=== PATIENT | male | born 1955 | race Caucasian/White ===

== ENCOUNTER → 2016-09-22 | Outpatient (CLI) | payer MEDICARE ==
[~2016-09-22] MED LIST: ASPI-498 PO; CLOP75TA28 PO; IOHEXOL 350 MG/ML 100ML IJ ONE; LIS20T PO; METF-312 PO; ROSU10TA16 PO
[2016-09-22 09:24] VITALS: BP 181/102
[2016-09-22 09:50] VITALS: BP 180/82
== END | disposition home or self-care (01) ==
LOC: Rad HDHVI 09:13
PROVIDERS: ATTEND Internal Medicine Cardiovascular Disease
DX: I63.8 Other cerebral infarction (principal)
CPT/HCPCS: 70496; 70498; G0463; Q9967

== ENCOUNTER → 2016-09-26 | Outpatient (CLI) | payer MEDICARE ==
[~2016-09-26] MED LIST changes: -IOHEXOL 350 MG/ML 100ML IJ ONE
[2016-09-26 10:35] VITALS: BP 142/84
[2016-09-26 11:00] VITALS: BP 138/80
[2016-09-26 16:42] LABS: INR 0.96 (0.9-1.15); Partial Thromboplastin Time 26.5 sec (22.64-33.71); Prothrombin Time 9.9 sec (9.37-12.3)
[2016-09-26 16:46] LABS: Basophils # (auto) 0 uL; Basophils % (auto) 0.6 % (0.0-2.0); Eosinophils # (auto) 0.1 uL; Hematocrit 47.3 % (41.0-53.0); Hemoglobin 15.7 g/dL (13.5-17.5); Lymphocytes % (auto) 23.4 % (10.0-50.0); Mean Corpuscular Hemoglobin 29.2 pg (28.0-32.0); Mean Corpuscular Hgb Conc. 33.1 g/dL (32.0-36.0); Mean Platelet Volume 10.1 fL (7.4-10.4); Monocytes # (auto) 0.7 uL; Monocytes % (auto) 8.3 % (0.0-12.0); Neutrophils # (auto) 5.6 uL; Neutrophils % (auto) 66.7 % (37.0-80.0); Platelet Count (auto) 267 10^3/uL (140-450); Red Cell Distribution Width 12.5 % (11.6-16.0); White Blood Cell 8.4 10^3/uL (4.4-10.8)
[2016-09-26 16:56] LABS: Potassium 4.7 mmol/L (3.5-5.1)
[2016-09-26 17:04] LABS: BUN/Creatinine Ratio 19.4; Calcium 8.4 mg/dL (8.5-10.1)
== END | disposition home or self-care (01) ==
LOC: Rad HDHVI 10:03
PROVIDERS: ATTEND Internal Medicine Cardiovascular Disease
DX: I10 Essential (primary) hypertension (principal); D64.9 Anemia, unspecified; R79.1 Abnormal coagulation profile
CPT/HCPCS: 36415; 71020; 80048; 85025; 85049; 85610; 85730; G0463

== ENCOUNTER → 2016-09-28 | Day surgery (SDC) | payer MEDICARE ==
[~2016-09-28] VITALS: Ht 30.5 cm; Wt 0.5 kg
[~2016-09-28] MED LIST changes: +ACETAMINOPHEN 500 MG TAB PO ONE; +ANGIOMAX 250 MG VIAL IV ONE; +EPTIFIBATIDE INJ (2MG/ML) 10ML VIAL IV ONE; +IOHEXOL 350 MG/ML 100ML IJ ONE; +LIDOCAINE 2%HCL (LOCAL ANESTH.) INJ 20ML MDV ONE; +MIDAZOLAM HCL 1MG/1ML-2 ML VIAL ONE; +SODIUM CHL 0.9% 0 ML ONE; +fentaNYL CITRATE 100 MCG/2 ML VL ONE
== END | disposition home or self-care (01) ==
LOC: CATH 10:26
PROVIDERS: ATTEND Internal Medicine Cardiovascular Disease
DX: I25.10 Atherosclerotic heart disease of native coronary artery without angina pectoris (principal); E11.9 Type 2 diabetes mellitus without complications; Z95.1 Presence of aortocoronary bypass graft; I25.5 Ischemic cardiomyopathy; B19.10 Unspecified viral hepatitis B without hepatic coma
CPT/HCPCS: 93458; C1760; C1887; C1894; J1644; J2250; J3010; J7030; Q9967

== ENCOUNTER → 2016-10-11 | Outpatient (CLI) | payer MEDICARE ==
[~2016-10-11] MED LIST changes: -ACETAMINOPHEN 500 MG TAB PO ONE; -ANGIOMAX 250 MG VIAL IV ONE; -EPTIFIBATIDE INJ (2MG/ML) 10ML VIAL IV ONE; -IOHEXOL 350 MG/ML 100ML IJ ONE; -LIDOCAINE 2%HCL (LOCAL ANESTH.) INJ 20ML MDV ONE; -MIDAZOLAM HCL 1MG/1ML-2 ML VIAL ONE; -SODIUM CHL 0.9% 0 ML ONE; -fentaNYL CITRATE 100 MCG/2 ML VL ONE
[2016-10-11 11:32] VITALS: BP_SYST 126; BP_SYST 132; BP_DIAS 70; BP_DIAS 80
== END | disposition home or self-care (01) ==
LOC: CHF HDHVI 10:57
PROVIDERS: ATTEND Internal Medicine Cardiovascular Disease
DX: I50.23 Acute on chronic systolic (congestive) heart failure (principal); I25.738 Atherosclerosis of nonautologous biological coronary artery bypass graft(s) with other forms of angina pectoris; Z95.5 Presence of coronary angioplasty implant and graft
CPT/HCPCS: G0166

== ENCOUNTER → 2016-10-12 | Outpatient (CLI) | payer MEDICARE ==
[2016-10-12 11:41] VITALS: BP_SYST 145; BP_DIAS 82; BP_DIAS 86
== END | disposition home or self-care (01) ==
LOC: CHF HDHVI 11:10
PROVIDERS: ATTEND Internal Medicine Cardiovascular Disease
DX: I50.23 Acute on chronic systolic (congestive) heart failure (principal); I25.738 Atherosclerosis of nonautologous biological coronary artery bypass graft(s) with other forms of angina pectoris; Z95.5 Presence of coronary angioplasty implant and graft
CPT/HCPCS: G0166

== ENCOUNTER → 2016-10-13 | Outpatient (CLI) | payer MEDICARE ==
[2016-10-13 11:16] VITALS: BP_SYST 157; BP_SYST 167; BP_DIAS 80; BP_DIAS 82
== END | disposition home or self-care (01) ==
LOC: CHF HDHVI 10:29
PROVIDERS: ATTEND Internal Medicine Cardiovascular Disease
DX: I50.23 Acute on chronic systolic (congestive) heart failure (principal); I25.738 Atherosclerosis of nonautologous biological coronary artery bypass graft(s) with other forms of angina pectoris; Z95.5 Presence of coronary angioplasty implant and graft
CPT/HCPCS: G0166

== ENCOUNTER → 2016-10-17 | Outpatient (CLI) | payer MEDICARE ==
[2016-10-17 11:22] VITALS: BP_SYST 139; BP_SYST 151; BP_DIAS 82; BP_DIAS 84
== END | disposition home or self-care (01) ==
LOC: CHF HDHVI 11:03
PROVIDERS: ATTEND Internal Medicine Cardiovascular Disease
DX: I50.23 Acute on chronic systolic (congestive) heart failure (principal); I25.738 Atherosclerosis of nonautologous biological coronary artery bypass graft(s) with other forms of angina pectoris; Z95.5 Presence of coronary angioplasty implant and graft
CPT/HCPCS: G0166

== ENCOUNTER → 2016-10-18 | Outpatient (CLI) | payer MEDICARE ==
[2016-10-18 11:20] VITALS: BP_SYST 156; BP_SYST 160; BP_DIAS 82; BP_DIAS 86
== END | disposition home or self-care (01) ==
LOC: CHF HDHVI 10:40
PROVIDERS: ATTEND Internal Medicine Cardiovascular Disease
DX: I50.23 Acute on chronic systolic (congestive) heart failure (principal); I25.738 Atherosclerosis of nonautologous biological coronary artery bypass graft(s) with other forms of angina pectoris; Z95.5 Presence of coronary angioplasty implant and graft
CPT/HCPCS: G0166

== ENCOUNTER → 2016-10-19 | Outpatient (CLI) | payer MEDICARE ==
[2016-10-19 11:00] VITALS: BP_SYST 148; BP_SYST 174; BP_DIAS 85; BP_DIAS 90
== END | disposition home or self-care (01) ==
LOC: CHF HDHVI 10:57
PROVIDERS: ATTEND Internal Medicine Cardiovascular Disease
DX: I50.23 Acute on chronic systolic (congestive) heart failure (principal); I25.738 Atherosclerosis of nonautologous biological coronary artery bypass graft(s) with other forms of angina pectoris; Z95.5 Presence of coronary angioplasty implant and graft
CPT/HCPCS: G0166

== ENCOUNTER → 2016-10-20 | Outpatient (CLI) | payer MEDICARE ==
[2016-10-20 11:09] VITALS: BP_SYST 158; BP_SYST 160; BP_DIAS 82; BP_DIAS 88
== END | disposition home or self-care (01) ==
LOC: CHF HDHVI 11:03
PROVIDERS: ATTEND Internal Medicine Cardiovascular Disease
DX: I50.23 Acute on chronic systolic (congestive) heart failure (principal); I25.738 Atherosclerosis of nonautologous biological coronary artery bypass graft(s) with other forms of angina pectoris; Z95.5 Presence of coronary angioplasty implant and graft
CPT/HCPCS: G0166

== ENCOUNTER → 2016-10-24 | Outpatient (CLI) | payer MEDICARE ==
[~2016-10-24] MED LIST changes: +ALBUTEROL SULF 2.5 MG/0.5ML(0.5%) NEB SOLN NEB ONE; +ALBUTEROL SULF 2.5 MG/0.5ML(0.5%) NEB SOLN ONE
[2016-10-24 09:12] VITALS: BP_SYST 140; BP_SYST 143; BP_DIAS 78; BP_DIAS 86
[2016-10-24 10:50] VITALS: BP 160/97
[2016-10-24 11:30] VITALS: BP 152/94
== END | disposition home or self-care (01) ==
LOC: CHF HDHVI 08:58
PROVIDERS: ATTEND Internal Medicine Cardiovascular Disease
DX: I50.23 Acute on chronic systolic (congestive) heart failure (principal); I25.738 Atherosclerosis of nonautologous biological coronary artery bypass graft(s) with other forms of angina pectoris; Z95.5 Presence of coronary angioplasty implant and graft
CPT/HCPCS: 94640; G0166; G0463

== ENCOUNTER → 2016-10-25 | Outpatient (CLI) | payer MEDICARE ==
[~2016-10-25] MED LIST changes: -ALBUTEROL SULF 2.5 MG/0.5ML(0.5%) NEB SOLN NEB ONE; -ALBUTEROL SULF 2.5 MG/0.5ML(0.5%) NEB SOLN ONE
[2016-10-25 09:16] VITALS: BP_SYST 160; BP_SYST 162; BP_DIAS 82; BP_DIAS 85
== END | disposition home or self-care (01) ==
LOC: CHF HDHVI 09:04
PROVIDERS: ATTEND Internal Medicine Cardiovascular Disease
DX: I50.23 Acute on chronic systolic (congestive) heart failure (principal); I25.738 Atherosclerosis of nonautologous biological coronary artery bypass graft(s) with other forms of angina pectoris; Z95.5 Presence of coronary angioplasty implant and graft
CPT/HCPCS: G0166

== ENCOUNTER → 2016-10-26 | Outpatient (CLI) | payer MEDICARE ==
[~2016-10-26] MED LIST changes: +AML5T PO; +ATOR10TA52 PO; +GLIP-115 PO; +IBU800T PO; +ISOS20TA49 PO; +LOSA100T22 PO; +METF-316 PO
[2016-10-26 09:11] VITALS: BP_SYST 118; BP_SYST 138; BP_DIAS 60; BP_DIAS 72
== END | disposition home or self-care (01) ==
LOC: CHF HDHVI 09:18
PROVIDERS: ATTEND Internal Medicine Cardiovascular Disease
DX: I50.23 Acute on chronic systolic (congestive) heart failure (principal); I25.738 Atherosclerosis of nonautologous biological coronary artery bypass graft(s) with other forms of angina pectoris; Z95.5 Presence of coronary angioplasty implant and graft
CPT/HCPCS: G0166

== ENCOUNTER → 2016-10-27 | Outpatient (CLI) | payer MEDICARE ==
[2016-10-27 09:07] VITALS: BP_SYST 158; BP_SYST 160; BP_DIAS 82; BP_DIAS 88
[2016-10-27 10:15] VITALS: BP 148/77
[2016-10-27 10:40] VITALS: BP 135/74
== END | disposition home or self-care (01) ==
LOC: CHF HDHVI 09:12
PROVIDERS: ATTEND Internal Medicine Cardiovascular Disease
DX: I50.23 Acute on chronic systolic (congestive) heart failure (principal); I25.738 Atherosclerosis of nonautologous biological coronary artery bypass graft(s) with other forms of angina pectoris; Z95.5 Presence of coronary angioplasty implant and graft; R06.02 Shortness of breath; R05 Cough
CPT/HCPCS: G0166; G0463

== ENCOUNTER → 2016-11-03 | Outpatient (CLI) | payer MEDICARE ==
[~2016-11-03] VITALS: Ht 30.5 cm; Wt 94.3 kg
[~2016-11-03] MED LIST changes: +ALBUTEROL SULF 2.5 MG/0.5ML(0.5%) NEB SOLN NEB ONE; +ALBUTEROL SULF 2.5 MG/0.5ML(0.5%) NEB SOLN ONE; -CLOP75TA28 PO; -LIS20T PO; -METF-312 PO; -ROSU10TA16 PO
[2016-11-03 09:20] VITALS: BP_SYST 155; BP_SYST 160; BP_DIAS 88; BP_DIAS 89
[2016-11-03 10:35] VITALS: BP 135/77
[2016-11-03 11:25] VITALS: BP 152/87
== END | disposition home or self-care (01) ==
LOC: CHF HDHVI 09:04
PROVIDERS: ATTEND Internal Medicine Cardiovascular Disease
DX: I50.23 Acute on chronic systolic (congestive) heart failure (principal); I25.738 Atherosclerosis of nonautologous biological coronary artery bypass graft(s) with other forms of angina pectoris; R06.02 Shortness of breath; Z95.5 Presence of coronary angioplasty implant and graft
CPT/HCPCS: 94640; G0166; G0463

== ENCOUNTER → 2016-11-06 | Outpatient (CLI) | payer MEDICARE ==
[~2016-11-06] MED LIST changes: -ALBUTEROL SULF 2.5 MG/0.5ML(0.5%) NEB SOLN NEB ONE; -ALBUTEROL SULF 2.5 MG/0.5ML(0.5%) NEB SOLN ONE
[2016-11-06 09:00] VITALS: BP_SYST 168; BP_SYST 174; BP_DIAS 88; BP_DIAS 90
== END | disposition home or self-care (01) ==
LOC: CHF HDHVI 08:54
PROVIDERS: ATTEND Internal Medicine Cardiovascular Disease
DX: I50.23 Acute on chronic systolic (congestive) heart failure (principal); I25.738 Atherosclerosis of nonautologous biological coronary artery bypass graft(s) with other forms of angina pectoris
CPT/HCPCS: G0166

== ENCOUNTER 2016-11-07 05:34 | Emergency (ER) | payer MEDICARE ==
[~2016-11-07] VITALS: Ht 170.2 cm; Wt 94.3 kg
[2016-11-07 06:48] LABS: Basophils # (auto) 0.1 uL; Basophils % (auto) 0.7 % (0.0-2.0); Eosinophils # (auto) 0.3 uL; Eosinophils % (auto) 2.7 % (0.0-7.0); Hematocrit 43.1 % (41.0-53.0); Hemoglobin 14.6 g/dL (13.5-17.5); Lymphocytes # (auto) 2.5 uL; Mean Corpuscular Hemoglobin 29.6 pg (28.0-32.0); Mean Corpuscular Hgb Conc. 33.9 g/dL (32.0-36.0); Mean Corpuscular Volume 87.6 fL (80.0-100.0); Mean Platelet Volume 7.6 fL (7.4-10.4); Monocytes # (auto) 1.1 uL; Monocytes % (auto) 10.6 % (0.0-12.0); Neutrophils # (auto) 6.1 uL; Platelet Count (auto) 347 10^3/uL (140-450); Red Cell Distribution Width 12.5 % (11.6-16.0)
[2016-11-07 06:58] LABS: Albumin 3.8 g/dL (3.4-5.0); Anion Gap 8 (5-15); Aspartate Aminotransferase 13 U/L (15-37); BUN/Creatinine Ratio 20.3; Blood Urea Nitrogen 26 mg/dL (7-18); Calcium 8.8 mg/dL (8.5-10.1); Carbon Dioxide 27 mmol/L (21-32); Chloride 99 mmol/L (98-107); GFR African American 73 mL/min; GFR Non-African American 60 mL/min; Glucose 176 mg/dL (74-106); INR 0.97 (0.9-1.15); Magnesium 2.3 mg/dL (1.6-2.6); Partial Thromboplastin Time 26.2 sec (22.64-33.71); Sodium 134 mmol/L (136-145)
[2016-11-07 07:03] LABS: Alkaline Phosphatase 123 U/L (45-117); Bilirubin, Total 0.2 mg/dL (0.2-1.0); Total Protein 7.5 g/dL (6.4-8.2)
[2016-11-07 07:43] VITALS: BP 155/103
[2016-11-07 09:40] LABS: B-Type Natriuretic Peptide 76.86 pg/mL (0-100)
[2016-11-07 09:42] LABS: Temperature: 22.2 C (20.0-25.0)
== END 2016-11-07 09:10 | disposition home or self-care (01) ==
LOC: ER 05:38
DX: J40 Bronchitis, not specified as acute or chronic (principal); J32.8 Other chronic sinusitis; E11.65 Type 2 diabetes mellitus with hyperglycemia; R42 Dizziness and giddiness; I50.9 Heart failure, unspecified; I11.0 Hypertensive heart disease with heart failure; E78.5 Hyperlipidemia, unspecified; I25.2 Old myocardial infarction; Z86.73 Personal history of transient ischemic attack (TIA), and cerebral infarction without residual deficits; I25.810 Atherosclerosis of coronary artery bypass graft(s) without angina pectoris
CPT/HCPCS: 36415; 70450; 71010; 80053; 83735; 83880; 84484; 85025; 85379; 85610; 85730; 87040; 93005; 94761

== ENCOUNTER → 2016-11-08 | Outpatient (CLI) | payer MEDICARE ==
[2016-11-08 09:22] VITALS: BP_SYST 160; BP_SYST 162; BP_DIAS 88; BP_DIAS 92
== END | disposition home or self-care (01) ==
LOC: CHF HDHVI 09:22
PROVIDERS: ATTEND Internal Medicine Cardiovascular Disease
DX: I50.23 Acute on chronic systolic (congestive) heart failure (principal); I25.738 Atherosclerosis of nonautologous biological coronary artery bypass graft(s) with other forms of angina pectoris; Z95.5 Presence of coronary angioplasty implant and graft
CPT/HCPCS: G0166

== ENCOUNTER 2016-11-13 13:00 | Emergency (ER) | payer MEDICARE ==
[~2016-11-13] VITALS: Ht 170.2 cm; Wt 94.8 kg
[2016-11-13 13:43] VITALS: BP 119/75
[2016-11-13 14:34] LABS: Basophils # (auto) 0.1 uL; Basophils % (auto) 0.6 % (0.0-2.0); Eosinophils # (auto) 0.1 uL; Eosinophils % (auto) 1.3 % (0.0-7.0); Hematocrit 42.2 % (41.0-53.0); Hemoglobin 14.5 g/dL (13.5-17.5); Lymphocytes # (auto) 2.2 uL; Mean Corpuscular Hemoglobin 29.7 pg (28.0-32.0); Mean Corpuscular Hgb Conc. 34.4 g/dL (32.0-36.0); Mean Corpuscular Volume 86.4 fL (80.0-100.0); Monocytes % (auto) 10.6 % (0.0-12.0); Neutrophils # (auto) 5.9 uL; Neutrophils % (auto) 63.5 % (37.0-80.0); Platelet Count (auto) 359 10^3/uL (140-450); Red Cell Distribution Width 12.9 % (11.6-16.0); White Blood Cell 9.3 10^3/uL (4.4-10.8)
[2016-11-13 15:06] LABS: Albumin 4.1 g/dL (3.4-5.0); Alkaline Phosphatase 91 U/L (45-117); Anion Gap 12 (5-15); Aspartate Aminotransferase 25 U/L (15-37); BUN/Creatinine Ratio 18.8; Bilirubin, Total 0.3 mg/dL (0.2-1.0); Blood Urea Nitrogen 33 mg/dL (7-18); Calcium 9.4 mg/dL (8.5-10.1); Carbon Dioxide 24 mmol/L (21-32); Chloride 103 mmol/L (98-107); GFR African American 51 mL/min; GFR Non-African American 42 mL/min; Glucose 117 mg/dL (74-106); Magnesium 2.4 mg/dL (1.6-2.6); Potassium 4.3 mmol/L (3.5-5.1); Sodium 139 mmol/L (136-145); Total Protein 7.7 g/dL (6.4-8.2)
== END 2016-11-13 20:30 | disposition left against medical advice (07) ==
LOC: ER 13:00
DX: R06.02 Shortness of breath (principal); R42 Dizziness and giddiness; Z53.21 Procedure and treatment not carried out due to patient leaving prior to being seen by health care provider
CPT/HCPCS: 36415; 71020; 80053; 83735; 84484; 85025; 93005

== ENCOUNTER → 2016-11-21 | Outpatient (CLI) | payer MEDICARE ==
[2016-11-21 11:06] VITALS: BP_SYST 145; BP_SYST 160; BP_DIAS 77; BP_DIAS 88
== END | disposition home or self-care (01) ==
LOC: CHF HDHVI 11:15
PROVIDERS: ATTEND Internal Medicine Cardiovascular Disease
DX: I50.23 Acute on chronic systolic (congestive) heart failure (principal); I25.738 Atherosclerosis of nonautologous biological coronary artery bypass graft(s) with other forms of angina pectoris; Z95.5 Presence of coronary angioplasty implant and graft
CPT/HCPCS: G0166

== ENCOUNTER → 2016-11-22 | Outpatient (CLI) | payer MEDICARE ==
[2016-11-22 11:28] VITALS: BP_SYST 160; BP_DIAS 82; BP_DIAS 90
== END | disposition home or self-care (01) ==
LOC: CHF HDHVI 12:58
PROVIDERS: ATTEND Internal Medicine Cardiovascular Disease
DX: I50.23 Acute on chronic systolic (congestive) heart failure (principal); I25.738 Atherosclerosis of nonautologous biological coronary artery bypass graft(s) with other forms of angina pectoris; Z95.5 Presence of coronary angioplasty implant and graft
CPT/HCPCS: G0166

== ENCOUNTER → 2016-11-23 | Outpatient (CLI) | payer MEDICARE ==
[2016-11-23 10:44] VITALS: BP_SYST 147; BP_SYST 151; BP_DIAS 79; BP_DIAS 85
== END | disposition home or self-care (01) ==
LOC: CHF HDHVI 11:04
PROVIDERS: ATTEND Internal Medicine Cardiovascular Disease
DX: I50.23 Acute on chronic systolic (congestive) heart failure (principal); I25.738 Atherosclerosis of nonautologous biological coronary artery bypass graft(s) with other forms of angina pectoris; Z95.5 Presence of coronary angioplasty implant and graft
CPT/HCPCS: G0166

== ENCOUNTER → 2016-11-24 | Outpatient (CLI) | payer MEDICARE ==
[2016-11-24 10:15] VITALS: BP_SYST 142; BP_SYST 146; BP_DIAS 74; BP_DIAS 89
== END | disposition home or self-care (01) ==
LOC: CHF HDHVI 10:13
PROVIDERS: ATTEND Internal Medicine Cardiovascular Disease
DX: I50.23 Acute on chronic systolic (congestive) heart failure (principal); I25.738 Atherosclerosis of nonautologous biological coronary artery bypass graft(s) with other forms of angina pectoris; Z95.5 Presence of coronary angioplasty implant and graft
CPT/HCPCS: G0166

== ENCOUNTER → 2016-11-28 | Outpatient (CLI) | payer MEDICARE ==
[2016-11-28 10:23] VITALS: BP_SYST 145; BP_SYST 158; BP_DIAS 82; BP_DIAS 87
== END | disposition home or self-care (01) ==
LOC: CHF HDHVI 09:59
PROVIDERS: ATTEND Internal Medicine Cardiovascular Disease
DX: I50.23 Acute on chronic systolic (congestive) heart failure (principal); I25.738 Atherosclerosis of nonautologous biological coronary artery bypass graft(s) with other forms of angina pectoris; Z95.5 Presence of coronary angioplasty implant and graft
CPT/HCPCS: G0166

== ENCOUNTER → 2016-11-29 | Outpatient (CLI) | payer MEDICARE ==
[2016-11-29 09:27] VITALS: BP_SYST 137; BP_SYST 160; BP_DIAS 78; BP_DIAS 80
== END | disposition home or self-care (01) ==
LOC: CHF HDHVI 09:19
PROVIDERS: ATTEND Internal Medicine Cardiovascular Disease
DX: I50.23 Acute on chronic systolic (congestive) heart failure (principal); I25.738 Atherosclerosis of nonautologous biological coronary artery bypass graft(s) with other forms of angina pectoris; Z95.5 Presence of coronary angioplasty implant and graft
CPT/HCPCS: G0166

== ENCOUNTER → 2016-11-30 | Outpatient (CLI) | payer MEDICARE ==
[2016-11-30 09:22] VITALS: BP_SYST 134; BP_SYST 146; BP_DIAS 80; BP_DIAS 86
== END | disposition home or self-care (01) ==
LOC: CHF HDHVI 09:05
PROVIDERS: ATTEND Internal Medicine Cardiovascular Disease
DX: I50.23 Acute on chronic systolic (congestive) heart failure (principal); I25.738 Atherosclerosis of nonautologous biological coronary artery bypass graft(s) with other forms of angina pectoris; I10 Essential (primary) hypertension; D64.9 Anemia, unspecified; Z95.5 Presence of coronary angioplasty implant and graft
CPT/HCPCS: G0166

== ENCOUNTER → 2016-12-01 | Outpatient (CLI) | payer MEDICARE ==
[2016-12-01 10:08] VITALS: BP_SYST 162; BP_SYST 164; BP_DIAS 80
== END | disposition home or self-care (01) ==
LOC: CHF HDHVI 10:08
PROVIDERS: ATTEND Internal Medicine Cardiovascular Disease
DX: I50.23 Acute on chronic systolic (congestive) heart failure (principal); I25.738 Atherosclerosis of nonautologous biological coronary artery bypass graft(s) with other forms of angina pectoris; Z95.5 Presence of coronary angioplasty implant and graft
CPT/HCPCS: G0166

== ENCOUNTER → 2017-01-03 | Outpatient (CLI) | payer MEDICARE | END | disposition home or self-care (01) | LOC: Rad HDHVI 08:08 | PROVIDERS: ATTEND Internal Medicine Cardiovascular Disease | DX: R06.02 Shortness of breath (principal); R42 Dizziness and giddiness | CPT/HCPCS: 93306 ==

== ENCOUNTER 2017-01-05 01:58 | Emergency (ER) | payer MEDICARE ==
[~2017-01-05] VITALS: Ht 170.2 cm; Wt 102.5 kg
[2017-01-05 02:17] VITALS: BP 167/98
[2017-01-05 03:04] LABS: Basophils # (auto) 0.1 uL; Basophils % (auto) 0.6 % (0.0-2.0); Eosinophils # (auto) 0.2 uL; Eosinophils % (auto) 1.7 % (0.0-7.0); Hematocrit 42.3 % (41.0-53.0); Hemoglobin 14.3 g/dL (13.5-17.5); Lymphocytes # (auto) 2.5 uL; Lymphocytes % (auto) 26.1 % (10.0-50.0); Mean Corpuscular Hemoglobin 29.7 pg (28.0-32.0); Mean Corpuscular Hgb Conc. 33.9 g/dL (32.0-36.0); Mean Corpuscular Volume 87.7 fL (80.0-100.0); Mean Platelet Volume 7.9 fL (7.4-10.4); Monocytes % (auto) 10.7 % (0.0-12.0); Neutrophils # (auto) 5.9 uL; Neutrophils % (auto) 60.9 % (37.0-80.0); Platelet Count (auto) 317 10^3/uL (140-450); Red Cell Distribution Width 13.4 % (11.6-16.0); White Blood Cell 9.6 10^3/uL (4.4-10.8)
[2017-01-05 03:11] LABS: Albumin 4.1 g/dL (3.4-5.0); Anion Gap 11 (5-15); Aspartate Aminotransferase 19 U/L (15-37); BUN/Creatinine Ratio 17.8; Blood Urea Nitrogen 23 mg/dL (7-18); Calcium 8.7 mg/dL (8.5-10.1); Carbon Dioxide 24 mmol/L (21-32); Chloride 99 mmol/L (98-107); GFR African American 72 mL/min; GFR Non-African American 60 mL/min; Glucose 247 mg/dL (74-106); Sodium 134 mmol/L (136-145)
[2017-01-05 03:16] LABS: Alkaline Phosphatase 163 U/L (45-117); Bilirubin, Total 0.4 mg/dL (0.2-1.0); Total Protein 7.7 g/dL (6.4-8.2)
== END 2017-01-05 04:30 | disposition left against medical advice (07) ==
LOC: ER 01:58
CPT/HCPCS: 36415; 80053; 84484; 85025; 93005

== ENCOUNTER 2017-02-17 11:22 | Inpatient (IN) | payer MEDICARE ==
[~2017-02-17] VITALS: Ht 170.2 cm; Wt 103.3 kg
[~2017-02-17 11:22] MED LIST changes: -AML5T PO; +CARV3.1240 PO; +CLOP75TA28 PO; +FURO20TA3 PO; +GLIP-116 PO; -IBU800T PO; +IBUP800T24 PO; -ISOS20TA49 PO; -METF-316 PO; +METF-372 PO; +SPIR25TA88 PO
[2017-02-17 12:12] LABS: Basophils # (auto) 0 uL; Basophils % (auto) 0.6 % (0.0-2.0); Eosinophils # (auto) 0.1 uL; Eosinophils % (auto) 1.1 % (0.0-7.0); Hematocrit 40.1 % (41.0-53.0); Hemoglobin 13.9 g/dL (13.5-17.5); Lymphocytes # (auto) 1.7 uL; Lymphocytes % (auto) 20.6 % (10.0-50.0); Mean Corpuscular Hemoglobin 30.2 pg (28.0-32.0); Mean Corpuscular Hgb Conc. 34.7 g/dL (32.0-36.0); Mean Corpuscular Volume 87.2 fL (80.0-100.0); Mean Platelet Volume 7.5 fL (7.4-10.4); Monocytes # (auto) 0.8 uL; Monocytes % (auto) 10.3 % (0.0-12.0); Neutrophils # (auto) 5.5 uL; Neutrophils % (auto) 67.4 % (37.0-80.0); Platelet Count (auto) 290 10^3/uL (140-450); Red Cell Distribution Width 13.1 % (11.6-16.0); White Blood Cell 8.2 10^3/uL (4.4-10.8)
[2017-02-17 12:44] LABS: Albumin 4.1 g/dL (3.4-5.0); Anion Gap 11 (5-15); Aspartate Aminotransferase 14 U/L (15-37); BUN/Creatinine Ratio 15.2; Blood Urea Nitrogen 24 mg/dL (7-18); Calcium 9.1 mg/dL (8.5-10.1); Carbon Dioxide 29 mmol/L (21-32); Chloride 95 mmol/L (98-107); GFR African American 57 mL/min; GFR Non-African American 47 mL/min; Glucose 291 mg/dL (74-106); Potassium 4.7 mmol/L (3.5-5.1); Sodium 135 mmol/L (136-145)
[2017-02-17 12:49] LABS: Alkaline Phosphatase 129 U/L (45-117); Bilirubin, Total 0.4 mg/dL (0.2-1.0); Total Protein 8.1 g/dL (6.4-8.2)
[2017-02-17 13:37] LABS: INR 0.94 (0.9-1.15); Partial Thromboplastin Time 25.6 sec (22.64-33.71); Prothrombin Time 10.2 sec (9.37-12.3)
[2017-02-17 17:44] LABS: B-Type Natriuretic Peptide 51.37 pg/mL (0-100)
[2017-02-17 17:46] LABS: Temperature: 23.5 C (20.0-25.0)
[2017-02-17] MEDS ORDERED: ASPirin-EC 81 mg tab PO ONE (18:15)
[2017-02-17] MEDS ORDERED: cefTRIAXone 1GM/50ML D5W 50 ML IV ONE (18:15)
[2017-02-17] MEDS ORDERED: SODIUM CHLORIDE 0.9% 1,000 ML IV SCH (18:27)
[2017-02-17] MEDS ORDERED: NITROGLYCERIN 0.4 MG SL TAB SL PRN (18:30)
[2017-02-17] MEDS ORDERED: MORPHINE SULF INJ 2 MG/ML SYRINGE 1ML IV PRN (18:30)
[2017-02-17] MEDS ORDERED: ALBUTEROL SULF 2.5 MG/0.5ML(0.5%) NEB SOLN NEB PRN (18:30)
[2017-02-17] MEDS ORDERED: LACTULOSE 20Gm/30ML SOLN PO PRN (18:30)
[2017-02-17] MEDS ORDERED: HYDROcodone-ACET 5/325MG TAB PO PRN (18:30)
[2017-02-17] MEDS ORDERED: LORazepam 0.5 MG TAB PO PRN (18:30)
[2017-02-17] MEDS ORDERED: DEXTROSE (50%) 50ML SYRG IV PRN (18:30)
[2017-02-17] MEDS ORDERED: PROMETHAZINE HCL 25 MG/ML 1ML IV PRN (18:30)
[2017-02-17] MEDS ORDERED: ACETAMINOPHEN 500 MG TAB PO PRN (18:30)
[2017-02-17] MEDS: ACCU-CHEK COMFORT CURVE STRIP VI SCH ×2 (19:53→23:53)
[2017-02-17] MEDS: InsuLIN REG 1unit/0.01ml Soln (100units/ml) SC SCH ×2 (19:53→23:54)
[2017-02-17 20:30] VITALS: BP 136/79
[2017-02-17 21:00] VITALS: BP 136/79
[2017-02-17] MEDS ORDERED: CLOPIDOGREL BISULFATE 75 MG TAB PO ONE (21:00)
[2017-02-17] MEDS ORDERED: NITROGLYCERIN 0.2MG/HR TOPICAL PATCH TD ONE (21:00)
[2017-02-17] MEDS ORDERED: ENOXAPARIN SOD 40 MG/0.4 ML SYRINGE SC ONE (21:00)
[2017-02-17] MEDS ORDERED: ENALAPRIL MALEATE 10 MG TAB PO ONE (21:00)
[2017-02-17] MEDS ORDERED: PANTOPRAZOLE 40 MG TAB PO ONE (21:00)
[2017-02-17 21:30] VITALS: BP 136/79
[2017-02-17] MEDS: CARVEDILOL 3.125 MG TAB PO SCH (21:39)
[2017-02-17] MEDS: glipiZIDE 5 MG TAB PO SCH (21:44)
[2017-02-17] MEDS: ATORVASTATIN 20 MG TAB PO SCH (21:45)
[2017-02-17] MEDS: MORPHINE SULF INJ 2 MG/ML SYRINGE 1ML IV PRN (22:59)
[2017-02-18] MEDS: ALBUTEROL SULF 2.5 MG/0.5ML(0.5%) NEB SOLN NEB SCH ×4 (00:20→19:58)
[2017-02-18] MEDS: IPRATROPIUM BROM 0.5 MG/2.5ML INH SOL NEB SCH ×4 (00:20→19:58)
[2017-02-18] MEDS ORDERED: GLIP-116 PO (01:40)
[2017-02-18] MEDS: TEMAZEPAM 15 MG CAP PO PRN ×2 (02:23→21:37)
[2017-02-18] MEDS: ACCU-CHEK COMFORT CURVE STRIP VI SCH ×5 (04:00→20:00)
[2017-02-18 04:30] VITALS: BP 133/66
[2017-02-18] MEDS: InsuLIN REG 1unit/0.01ml Soln (100units/ml) SC SCH ×5 (05:08→21:14)
[2017-02-18 07:01] LABS: Albumin 3.5 g/dL (3.4-5.0); Alkaline Phosphatase 75 U/L (45-117); Anion Gap 12 (5-15); Aspartate Aminotransferase 46 U/L (15-37); BUN/Creatinine Ratio 23.1; Bilirubin, Total 0.5 mg/dL (0.2-1.0); Blood Urea Nitrogen 30 mg/dL (7-18); Calcium 8.6 mg/dL (8.5-10.1); Carbon Dioxide 24 mmol/L (21-32); Chloride 100 mmol/L (98-107); Cholesterol 112 mg/dL (< 200); GFR African American 72 mL/min; GFR Non-African American 59 mL/min; Glucose 124 mg/dL (74-106); HDL Cholesterol 30 mg/dL (40-59); LDL Cholesterol 57 mg/dL (< 100); Sodium 136 mmol/L (136-145); Total Protein 6.7 g/dL (6.4-8.2); Triglycerides 355 mg/dL (< 150)
[2017-02-18 08:00] VITALS: BP 142/82
[2017-02-18] MEDS: ASPirin 81 mg TAB PO SCH (09:26)
[2017-02-18] MEDS: PANTOPRAZOLE 40 MG TAB PO SCH (09:26)
[2017-02-18] MEDS: CLOPIDOGREL BISULFATE 75 MG TAB PO SCH (09:26)
[2017-02-18] MEDS: glipiZIDE 5 MG TAB PO SCH ×2 (09:27→21:37)
[2017-02-18] MEDS: ENALAPRIL MALEATE 10 MG TAB PO SCH (09:27)
[2017-02-18] MEDS: ENOXAPARIN SOD 40 MG/0.4 ML SYRINGE SC SCH (09:28)
[2017-02-18] MEDS: CARVEDILOL 3.125 MG TAB PO SCH ×2 (09:29→21:39)
[2017-02-18] MEDS: cefTRIAXone 1GM/50ML D5W 50 ML IV SCH (09:29)
[2017-02-18] MEDS: NITROGLYCERIN 0.2MG/HR TOPICAL PATCH TD SCH (10:00)
[2017-02-18] MEDS ORDERED: LOSARTAN POTASSIUM 50 MG TAB PO SCH (10:00)
[2017-02-18 10:57] LABS: Urine Bilirubin Negative (Negative); Urine Blood Negative /uL (Negative); Urine Color Yellow (Yellow); Urine Glucose 2+ mg/dL (Normal); Urine Ketone Negative (Negative); Urine Nitrite Negative (Negative); Urine RBC <1 /hpf (0 - 3); Urine Urobilinogen Normal (Negative); Urine pH 5.5 (5.0-8.0)
[2017-02-18 12:24] LABS: B-Type Natriuretic Peptide 43.23 pg/mL (0-100)
[2017-02-18] MEDS: AZITHROMYCIN 500MG/D5W 250ML 250 ML IV SCH (12:28)
[2017-02-18 12:30] LABS: Temperature: 23.5 C (20.0-25.0)
[2017-02-18 13:39] VITALS: BP 105/57
[2017-02-18 17:07] VITALS: BP_SYST 121; BP_SYST 148; BP_DIAS 76; BP_DIAS 87
[2017-02-18 20:00] VITALS: BP 136/94
[2017-02-18 21:12] VITALS: BP 134/77
[2017-02-18] MEDS: ATORVASTATIN 20 MG TAB PO SCH (21:37)
[2017-02-19] VITALS (7 sets, daily range): BP systolic 125–138; BP diastolic 69–89
[2017-02-19] MEDS: ALBUTEROL SULF 2.5 MG/0.5ML(0.5%) NEB SOLN NEB SCH ×3 (00:40→13:18)
[2017-02-19] MEDS: IPRATROPIUM BROM 0.5 MG/2.5ML INH SOL NEB SCH ×3 (00:41→13:18)
[2017-02-19] MEDS: InsuLIN REG 1unit/0.01ml Soln (100units/ml) SC SCH ×4 (01:00→12:17)
[2017-02-19] MEDS: ACCU-CHEK COMFORT CURVE STRIP VI SCH ×4 (04:15→12:16)
[2017-02-19 06:29] LABS: Basophils # (auto) 0 uL; Basophils % (auto) 0.6 % (0.0-2.0); Eosinophils # (auto) 0.2 uL; Eosinophils % (auto) 2.2 % (0.0-7.0); Hematocrit 37.2 % (41.0-53.0); Hemoglobin 12.9 g/dL (13.5-17.5); Lymphocytes # (auto) 1.8 uL; Lymphocytes % (auto) 24.5 % (10.0-50.0); Mean Corpuscular Hemoglobin 30.5 pg (28.0-32.0); Mean Corpuscular Hgb Conc. 34.6 g/dL (32.0-36.0); Mean Platelet Volume 7.9 fL (7.4-10.4); Monocytes # (auto) 0.7 uL; Monocytes % (auto) 10.4 % (0.0-12.0); Neutrophils # (auto) 4.5 uL; Neutrophils % (auto) 62.3 % (37.0-80.0); Platelet Count (auto) 267 10^3/uL (140-450); Red Cell Distribution Width 12.6 % (11.6-16.0); White Blood Cell 7.2 10^3/uL (4.4-10.8)
[2017-02-19 06:42] LABS: INR 0.96 (0.9-1.15); Prothrombin Time 10.5 sec (9.37-12.3)
[2017-02-19 07:23] LABS: Albumin 3.6 g/dL (3.4-5.0); BUN/Creatinine Ratio 19.7; Bilirubin, Total 0.3 mg/dL (0.2-1.0); Calcium 8.5 mg/dL (8.5-10.1); Magnesium 2.4 mg/dL (1.6-2.6); Potassium 3.7 mmol/L (3.5-5.1); Total Protein 6.5 g/dL (6.4-8.2)
[2017-02-19] MEDS: cefTRIAXone 1GM/50ML D5W 50 ML IV SCH (09:01)
[2017-02-19] MEDS: PANTOPRAZOLE 40 MG TAB PO SCH (09:47)
[2017-02-19] MEDS: ASPirin 81 mg TAB PO SCH (09:47)
[2017-02-19] MEDS: AZITHROMYCIN 500MG/D5W 250ML 250 ML IV SCH (09:47)
[2017-02-19] MEDS: CLOPIDOGREL BISULFATE 75 MG TAB PO SCH (09:48)
[2017-02-19] MEDS: glipiZIDE 5 MG TAB PO SCH (09:48)
[2017-02-19] MEDS: CARVEDILOL 3.125 MG TAB PO SCH (09:48)
[2017-02-19] MEDS: ENALAPRIL MALEATE 10 MG TAB PO SCH (09:49)
[2017-02-19] MEDS ORDERED: FUROSEMIDE 20 MG/2 ML VIAL IV SCH (10:00)
[2017-02-19] MEDS: NITROGLYCERIN 0.2MG/HR TOPICAL PATCH TD SCH (10:00)
[2017-02-19] MEDS: ENOXAPARIN SOD 40 MG/0.4 ML SYRINGE SC SCH (10:04)
[2017-02-19] MEDS: MORPHINE SULF INJ 2 MG/ML SYRINGE 1ML IV PRN (10:04)
== END 2017-02-19 15:53 | disposition home or self-care (01) | DRG 291 ==
LOC: ER 11:23 → TELE 11:24 → TELE-WESTW 19:48
PROVIDERS: ADMIT Internal Medicine; ATTEND Internal Medicine
DX: I50.21 Acute systolic (congestive) heart failure (principal); J18.9 Pneumonia, unspecified organism; N17.9 Acute kidney failure, unspecified; E87.1 Hypo-osmolality and hyponatremia; I13.0 Hypertensive heart and chronic kidney disease with heart failure and stage 1 through stage 4 chronic kidney disease, or unspecified chronic kidney disease; I25.110 Atherosclerotic heart disease of native coronary artery with unstable angina pectoris; I25.5 Ischemic cardiomyopathy; E11.22 Type 2 diabetes mellitus with diabetic chronic kidney disease; E78.5 Hyperlipidemia, unspecified; E66.01 Morbid (severe) obesity due to excess calories; E11.69 Type 2 diabetes mellitus with other specified complication; E11.65 Type 2 diabetes mellitus with hyperglycemia; E11.40 Type 2 diabetes mellitus with diabetic neuropathy, unspecified; E66.9 Obesity, unspecified; G47.30 Sleep apnea, unspecified; N18.3 Chronic kidney disease, stage 3 (moderate); Z82.3 Family history of stroke; Z86.73 Personal history of transient ischemic attack (TIA), and cerebral infarction without residual deficits; I25.2 Old myocardial infarction; Z95.5 Presence of coronary angioplasty implant and graft; Z82.49 Family history of ischemic heart disease and other diseases of the circulatory system; Z83.3 Family history of diabetes mellitus; Z95.810 Presence of automatic (implantable) cardiac defibrillator; Z79.899 Other long term (current) drug therapy; Z68.35 Body mass index [BMI] 35.0-35.9, adult
CPT/HCPCS: 36415; 71020; 80053; 80061; 80307; 81001; 82550; 82962; 83036; 83605; 83735; 83880; 84484; 85025; 85379; 85610; 85652; 85730; 86141; 87040; 87081; 93005; 94640; 94761; 96374; J0696; J1815

== ENCOUNTER → 2017-02-22 | Day surgery (SDC) | payer MEDICARE ==
[~2017-02-22] VITALS: Ht 30.5 cm; Wt 0.0 kg
[~2017-02-22] MED LIST changes: +ANGIOMAX 250 MG VIAL IV ONE; +CARVEDILOL 3.125 MG TAB ONE; +CARVEDILOL 3.125 MG TAB PO ONE; +DOPamine 1600MCG/ML 0 ML IV ONE; +ENALAPRIL MALEATE 10 MG TAB ONE; +ENALAPRIL MALEATE 10 MG TAB PO ONE; -GLIP-115 PO; +GLYCOPYRROLATE 0.2 MG/ML 1ML VIAL ONE; +IOHEXOL 350 MG/ML 100ML IJ ONE; +LIDOCAINE 2%HCL (LOCAL ANESTH.) INJ 20ML MDV ONE; +PHENYLEPHRINE HCL 10 MG/ML VL ONE; +SODIUM CHL 0.9% 0 ML ONE
== END | disposition home or self-care (01) ==
LOC: CATH 08:00
PROVIDERS: ATTEND Internal Medicine Cardiovascular Disease
DX: I25.10 Atherosclerotic heart disease of native coronary artery without angina pectoris (principal); Z95.1 Presence of aortocoronary bypass graft; I25.5 Ischemic cardiomyopathy; E66.01 Morbid (severe) obesity due to excess calories; E78.5 Hyperlipidemia, unspecified; I21.3 ST elevation (STEMI) myocardial infarction of unspecified site; E11.9 Type 2 diabetes mellitus without complications; M19.90 Unspecified osteoarthritis, unspecified site; I50.9 Heart failure, unspecified; J44.9 Chronic obstructive pulmonary disease, unspecified; J40 Bronchitis, not specified as acute or chronic
CPT/HCPCS: 36224; 82962; C1760; C1894; J1644; J2370; J7030; Q9967; 99152

== ENCOUNTER → 2017-03-14 | Outpatient (CLI) | payer MEDICARE ==
[~2017-03-14] MED LIST changes: -ANGIOMAX 250 MG VIAL IV ONE; -CARVEDILOL 3.125 MG TAB ONE; -CARVEDILOL 3.125 MG TAB PO ONE; -DOPamine 1600MCG/ML 0 ML IV ONE; -ENALAPRIL MALEATE 10 MG TAB ONE; -ENALAPRIL MALEATE 10 MG TAB PO ONE; -GLYCOPYRROLATE 0.2 MG/ML 1ML VIAL ONE; -IOHEXOL 350 MG/ML 100ML IJ ONE; -LIDOCAINE 2%HCL (LOCAL ANESTH.) INJ 20ML MDV ONE; -PHENYLEPHRINE HCL 10 MG/ML VL ONE; -SODIUM CHL 0.9% 0 ML ONE
== END | disposition home or self-care (01) ==
LOC: Rad HDHVI 15:03
PROVIDERS: ATTEND Internal Medicine Cardiovascular Disease
DX: E78.5 Hyperlipidemia, unspecified (principal)
CPT/HCPCS: 93306

== ENCOUNTER → 2017-03-28 | Outpatient (CLI) | payer MEDICARE ==
[~2017-03-28] VITALS: Ht 170.2 cm; Wt 101.2 kg
[2017-03-28 13:11] LABS: Cholesterol 134 mg/dL (< 200); HDL Cholesterol 37 mg/dL (40-59); LDL Cholesterol 64 mg/dL (< 100); Triglycerides 334 mg/dL (< 150)
== END | disposition home or self-care (01) ==
LOC: Rad HDHVI 09:15
PROVIDERS: ATTEND Internal Medicine Cardiovascular Disease
DX: I10 Essential (primary) hypertension (principal); I25.2 Old myocardial infarction; E78.00 Pure hypercholesterolemia, unspecified; E03.9 Hypothyroidism, unspecified; R53.81 Other malaise; Z95.0 Presence of cardiac pacemaker; Z95.1 Presence of aortocoronary bypass graft
CPT/HCPCS: 36415; 78452; 80061; 84403; 84443; 93017; 96374; A9500

== ENCOUNTER 2017-09-26 05:17 | Emergency (ER) | payer OTHER ==
[~2017-09-26] VITALS: Ht 170.2 cm; Wt 90.7 kg
[~2017-09-26 05:17] MED LIST changes: +PRE5T PO
[2017-09-26 06:56] LABS: Basophils # (auto) 0.1 uL; Eosinophils # (auto) 0.1 uL; Hematocrit 40.6 % (41.0-53.0); Lymphocytes # (auto) 1.9 uL; Lymphocytes % (auto) 23.8 % (10.0-50.0); Mean Corpuscular Hemoglobin 28.9 pg (28.0-32.0); Mean Corpuscular Hgb Conc. 34.4 g/dL (32.0-36.0); Mean Corpuscular Volume 84.2 fL (80.0-100.0); Monocytes # (auto) 0.9 uL; Monocytes % (auto) 11.1 % (0.0-12.0); Neutrophils % (auto) 63.1 % (37.0-80.0); Nucleated Red Blood Cells % 0.1 %; Platelet Count (auto) 230 10^3/uL (140-450); Red Blood Cells 4.82 10^6/uL (4.5-5.90); Red Cell Distribution Width 13.4 % (11.8-14.3); White Blood Cell 7.9 10^3/uL (4.4-10.8)
[2017-09-26 07:16] LABS: INR 0.93 (0.9-1.15); Partial Thromboplastin Time 26.6 sec (22.64-33.71); Prothrombin Time 10.1 sec (9.37-12.3)
[2017-09-26] MEDS ORDERED: SODIUM CHLORIDE 0.9% 1,000 ML IV ONE (07:22)
[2017-09-26 07:27] LABS: Albumin 3.5 g/dL (3.4-5.0); BUN/Creatinine Ratio 17.9; Bilirubin, Total 0.4 mg/dL (0.2-1.0); Magnesium 2.2 mg/dL (1.6-2.6); Potassium 3.7 mmol/L (3.5-5.1); Total Protein 6.4 g/dL (6.4-8.2)
[2017-09-26 07:31] VITALS: BP 147/88
[2017-09-26 08:47] LABS: Urine Bacteria NONE SEEN /hpf (None Seen); Urine Blood Negative /uL (Negative); Urine WBC <1 /hpf (0 - 3)
== END 2017-09-26 09:47 | disposition home or self-care (01) ==
LOC: EDBD 05:17 → EDUNIT# 05:17 → ER 05:21
DX: I25.810 Atherosclerosis of coronary artery bypass graft(s) without angina pectoris (principal); J44.9 Chronic obstructive pulmonary disease, unspecified; R81 Glycosuria; R80.9 Proteinuria, unspecified; I11.0 Hypertensive heart disease with heart failure; I50.9 Heart failure, unspecified; E78.5 Hyperlipidemia, unspecified; E11.65 Type 2 diabetes mellitus with hyperglycemia; Z86.73 Personal history of transient ischemic attack (TIA), and cerebral infarction without residual deficits; Z95.1 Presence of aortocoronary bypass graft; Z95.0 Presence of cardiac pacemaker; Z79.82 Long term (current) use of aspirin; Z95.810 Presence of automatic (implantable) cardiac defibrillator
CPT/HCPCS: 36415; 71046; 80053; 81001; 83735; 83880; 84443; 84484; 85025; 85610; 85730; 93005; 94761; 96360; 96361

== ENCOUNTER 2018-02-27 05:37 | Inpatient (IN) | payer MEDICARE, OTHER ==
[~2018-02-27] VITALS: Ht 170.2 cm; Wt 103.4 kg
[2018-02-27 07:14] LABS: Basophils # (auto) 0 uL; Basophils % (auto) 0.5 % (0.0-2.0); Eosinophils # (auto) 0.1 uL; Eosinophils % (auto) 1.3 % (0.0-7.0); Hematocrit 40.9 % (41.0-53.0); Hemoglobin 13.9 g/dL (13.5-17.5); Lymphocytes # (auto) 1.5 uL; Lymphocytes % (auto) 19.8 % (10.0-50.0); Mean Corpuscular Hemoglobin 29.6 pg (28.0-32.0); Mean Corpuscular Volume 86.9 fL (80.0-100.0); Monocytes # (auto) 0.9 uL; Monocytes % (auto) 12.1 % (0.0-12.0); Neutrophils # (auto) 5.1 uL; Neutrophils % (auto) 66.3 % (37.0-80.0); Platelet Count (auto) 208 10^3/uL (140-450); Red Cell Distribution Width 13.2 % (11.8-14.3); White Blood Cell 7.8 10^3/uL (4.4-10.8)
[2018-02-27 07:20] LABS: INR 0.9 (0.9-1.15); Partial Thromboplastin Time 25.9 sec (23.78-33.04); Prothrombin Time 9.7 sec (9.27-12.13)
[2018-02-27 07:23] LABS: Anion Gap 11 (5-15); Calcium 8.2 mg/dL (8.5-10.1); Carbon Dioxide 22 mmol/L (21-32); Chloride 99 mmol/L (98-107); Glucose 265 mg/dL (74-106); Potassium 4.3 mmol/L (3.5-5.1); Sodium 132 mmol/L (136-145)
[2018-02-27 07:31] LABS: Alanine Aminotransferase 51 U/L (16-61); Albumin 3.4 g/dL (3.4-5.0); Alkaline Phosphatase 92 U/L (45-117); Aspartate Aminotransferase 23 U/L (15-37); BUN/Creatinine Ratio 21.4; Bilirubin, Total 0.4 mg/dL (0.2-1.0); Blood Urea Nitrogen 28 mg/dL (7-18); GFR African American 71 mL/min; GFR Non-African American 59 mL/min; Total Protein 6.7 g/dL (6.4-8.2)
[2018-02-27 08:50] LABS: Urine WBC None Seen /hpf (0 - 3)
[2018-02-27 09:01] LABS: Urine Bacteria NONE SEEN /hpf (None Seen); Urine Blood Negative /uL (Negative); Urine Specific Gravity 1.029 (1.001-1.035)
[2018-02-27] MEDS ORDERED: SPIRONOLACTONE 25 MG TAB PO ONE (13:00)
[2018-02-27] MEDS ORDERED: METOPROLOL TARTRATE 1MG/1ML-5ML VIAL IV ONE (13:00)
[2018-02-27] MEDS ORDERED: FUROSEMIDE 40 MG/4 ML VIAL IV ONE (13:00)
[2018-02-27] MEDS ORDERED: LACTULOSE 20Gm/30ML SOLN PO PRN (13:15)
[2018-02-27] MEDS ORDERED: LORazepam 0.5 MG TAB PO PRN (13:15)
[2018-02-27] MEDS ORDERED: ALBUTEROL SULF 2.5 MG/0.5ML(0.5%) NEB SOLN NEB PRN (13:15)
[2018-02-27] MEDS ORDERED: DEXTROSE (50%) 50ML SYRG IV PRN (13:15)
[2018-02-27] MEDS ORDERED: PROMETHAZINE HCL 25 MG/ML 1ML IV PRN (13:15)
[2018-02-27] MEDS ORDERED: HYDROmorphone HCL 2 MG/ML VL IV PRN (13:15)
[2018-02-27] MEDS ORDERED: NITROGLYCERIN 0.4 MG SL TAB SL PRN (14:00)
[2018-02-27] MEDS ORDERED: MORPHINE SULF(PF) 0.5MG/ML 10ML VIAL IV PRN (14:00)
[2018-02-27] MEDS: SODIUM CHLOR 0.9% PF (SALINE LOCK) 10ML VIAL/SYR IV SCH ×2 (16:20→21:37)
[2018-02-27] MEDS: DOXYCYCLINE 100MG/250ML 250 ML IV SCH (16:20)
[2018-02-27] MEDS: ACCU-CHEK COMFORT CURVE STRIP VI SCH ×2 (17:21→21:38)
[2018-02-27] MEDS: glipiZIDE 5 MG TAB PO SCH (17:22)
[2018-02-27] MEDS: InsuLIN REG 1unit/0.01ml Soln (100units/ml) SC SCH ×2 (17:22→21:39)
[2018-02-27] MEDS: IPRATROPIUM BROM 0.5 MG/2.5ML INH SOL NEB SCH (18:19)
[2018-02-27] MEDS: ALBUTEROL SULF 2.5 MG/0.5ML(0.5%) NEB SOLN NEB SCH (18:19)
[2018-02-27 18:31] VITALS: BP 160/75
[2018-02-27 20:15] VITALS: BP 144/74
[2018-02-27] MEDS: ACETAMINOPHEN 500 MG TAB PO PRN (20:44)
[2018-02-27] MEDS: TEMAZEPAM 15 MG CAP PO PRN (21:37)
[2018-02-27] MEDS: ATORVASTATIN 20 MG TAB PO SCH (21:37)
[2018-02-27] MEDS: CARVEDILOL 3.125 MG TAB PO SCH (21:44)
[2018-02-27 22:00] VITALS: BP 166/84
[2018-02-28] MEDS: IPRATROPIUM BROM 0.5 MG/2.5ML INH SOL NEB SCH ×3 (00:39→18:54)
[2018-02-28] MEDS: ALBUTEROL SULF 2.5 MG/0.5ML(0.5%) NEB SOLN NEB SCH ×3 (00:39→18:54)
[2018-02-28] MEDS: DOXYCYCLINE 100MG/250ML 250 ML IV SCH ×2 (01:32→14:04)
[2018-02-28 05:00] VITALS: BP 150/77
[2018-02-28] MEDS: SODIUM CHLOR 0.9% PF (SALINE LOCK) 10ML VIAL/SYR IV SCH ×3 (05:56→21:53)
[2018-02-28] MEDS: ACCU-CHEK COMFORT CURVE STRIP VI SCH ×4 (06:53→21:58)
[2018-02-28] MEDS: glipiZIDE 5 MG TAB PO SCH ×2 (06:54→18:01)
[2018-02-28] MEDS: InsuLIN REG 1unit/0.01ml Soln (100units/ml) SC SCH ×4 (06:54→22:01)
[2018-02-28 07:09] LABS: Alanine Aminotransferase 55 U/L (16-61); Albumin 3.5 g/dL (3.4-5.0); Alkaline Phosphatase 73 U/L (45-117); Anion Gap 8 (5-15); Aspartate Aminotransferase 41 U/L (15-37); BUN/Creatinine Ratio 14.9; Bilirubin, Total 0.5 mg/dL (0.2-1.0); Blood Urea Nitrogen 17 mg/dL (7-18); Calcium 8.6 mg/dL (8.5-10.1); Carbon Dioxide 29 mmol/L (21-32); Chloride 100 mmol/L (98-107); Cholesterol 180 mg/dL (< 200); GFR African American 83 mL/min; GFR Non-African American 69 mL/min; Glucose 206 mg/dL (74-106); HDL Cholesterol 33 mg/dL (40-59); Sodium 137 mmol/L (136-145); Total Protein 6.7 g/dL (6.4-8.2); Triglycerides 460 mg/dL (< 150)
[2018-02-28] MEDS: ACETAMINOPHEN 500 MG TAB PO PRN (08:25)
[2018-02-28 09:00] VITALS: BP 163/88
[2018-02-28] MEDS ORDERED: ENOXAPARIN SOD 40 MG/0.4 ML SYRINGE SC SCH (10:00)
[2018-02-28] MEDS: FUROSEMIDE 40 MG/4 ML VIAL IV SCH (10:03)
[2018-02-28] MEDS: CLOPIDOGREL BISULFATE 75 MG TAB PO SCH (10:03)
[2018-02-28] MEDS: PANTOPRAZOLE 40 MG TAB PO SCH (10:04)
[2018-02-28] MEDS: POTASSIUM CHL 20 Meq TABLET PO SCH (10:04)
[2018-02-28] MEDS: CARVEDILOL 3.125 MG TAB PO SCH ×2 (10:04→21:53)
[2018-02-28] MEDS: ENALAPRIL MALEATE 10 MG TAB PO SCH (10:04)
[2018-02-28] MEDS: ASPirin-EC 81 mg tab PO SCH (10:04)
[2018-02-28] MEDS: LOSARTAN POTASSIUM 50 MG TAB PO SCH (10:05)
[2018-02-28] MEDS: ENOXAPARIN SOD 40 MG/0.4 ML SYRINGE SC SCH (10:05)
[2018-02-28] MEDS: SPIRONOLACTONE 25 MG TAB PO SCH (10:05)
[2018-02-28 13:00] VITALS: BP 133/72
[2018-02-28 17:00] VITALS: BP 101/71
[2018-02-28] MEDS: TEMAZEPAM 15 MG CAP PO PRN (21:54)
[2018-02-28] MEDS: ATORVASTATIN 20 MG TAB PO SCH (21:54)
[2018-02-28] MEDS: HYDROcodone-ACET 5/325MG TAB PO PRN (21:55)
[2018-02-28 22:00] VITALS: BP 125/91
[2018-03-01] MEDS: DOXYCYCLINE 100MG/250ML 250 ML IV SCH (01:27)
[2018-03-01] MEDS: IPRATROPIUM BROM 0.5 MG/2.5ML INH SOL NEB SCH ×3 (02:11→12:00)
[2018-03-01] MEDS: ALBUTEROL SULF 2.5 MG/0.5ML(0.5%) NEB SOLN NEB SCH ×3 (02:12→12:00)
[2018-03-01 05:00] VITALS: BP 144/84
[2018-03-01] MEDS: ACCU-CHEK COMFORT CURVE STRIP VI SCH (06:44)
[2018-03-01] MEDS: glipiZIDE 5 MG TAB PO SCH (06:50)
[2018-03-01] MEDS: SODIUM CHLOR 0.9% PF (SALINE LOCK) 10ML VIAL/SYR IV SCH (06:51)
[2018-03-01] MEDS: InsuLIN REG 1unit/0.01ml Soln (100units/ml) SC SCH (06:51)
[2018-03-01] MEDS: HYDROcodone-ACET 5/325MG TAB PO PRN (07:58)
[2018-03-01] MEDS: LOSARTAN POTASSIUM 50 MG TAB PO SCH (09:42)
[2018-03-01] MEDS: CLOPIDOGREL BISULFATE 75 MG TAB PO SCH (09:43)
[2018-03-01] MEDS: ENALAPRIL MALEATE 10 MG TAB PO SCH (09:43)
[2018-03-01] MEDS: FUROSEMIDE 40 MG/4 ML VIAL IV SCH (09:43)
[2018-03-01] MEDS: PANTOPRAZOLE 40 MG TAB PO SCH (09:43)
[2018-03-01] MEDS: ENOXAPARIN SOD 40 MG/0.4 ML SYRINGE SC SCH (09:43)
[2018-03-01] MEDS: POTASSIUM CHL 20 Meq TABLET PO SCH (09:43)
[2018-03-01] MEDS: CARVEDILOL 3.125 MG TAB PO SCH (09:43)
[2018-03-01] MEDS: ASPirin-EC 81 mg tab PO SCH (09:43)
[2018-03-01] MEDS: SPIRONOLACTONE 25 MG TAB PO SCH (09:45)
[2018-03-01 11:09] VITALS: BP 133/72
== END 2018-03-01 12:00 | disposition home or self-care (01) | DRG 637 ==
LOC: EDBD 05:37 → ER 05:48 → TELE 05:49 → TELE-EAST 20:06
PROVIDERS: ADMIT Internal Medicine; ATTEND Family Medicine
DX: E11.65 Type 2 diabetes mellitus with hyperglycemia (principal); I50.43 Acute on chronic combined systolic (congestive) and diastolic (congestive) heart failure; E87.1 Hypo-osmolality and hyponatremia; I25.810 Atherosclerosis of coronary artery bypass graft(s) without angina pectoris; I42.0 Dilated cardiomyopathy; I13.0 Hypertensive heart and chronic kidney disease with heart failure and stage 1 through stage 4 chronic kidney disease, or unspecified chronic kidney disease; I16.0 Hypertensive urgency; N18.3 Chronic kidney disease, stage 3 (moderate); I50.9 Heart failure, unspecified; E78.5 Hyperlipidemia, unspecified; F41.9 Anxiety disorder, unspecified; J44.9 Chronic obstructive pulmonary disease, unspecified; E11.21 Type 2 diabetes mellitus with diabetic nephropathy; E11.22 Type 2 diabetes mellitus with diabetic chronic kidney disease; N18.9 Chronic kidney disease, unspecified; I25.5 Ischemic cardiomyopathy; G47.30 Sleep apnea, unspecified; E66.9 Obesity, unspecified; Z68.35 Body mass index [BMI] 35.0-35.9, adult; I25.2 Old myocardial infarction; Z79.4 Long term (current) use of insulin; Z82.3 Family history of stroke; Z82.49 Family history of ischemic heart disease and other diseases of the circulatory system; Z83.3 Family history of diabetes mellitus; Z86.73 Personal history of transient ischemic attack (TIA), and cerebral infarction without residual deficits; Z91.19 Patient's noncompliance with other medical treatment and regimen; Z95.5 Presence of coronary angioplasty implant and graft; Z95.810 Presence of automatic (implantable) cardiac defibrillator
CPT/HCPCS: 36415; 36600; 71045; 80053; 80061; 81001; 82550; 82805; 82962; 83036; 83880; 84443; 84484; 85025; 85379; 85610; 85730; 93005; 94640; 96374; 96375; J1815; J3490

== ENCOUNTER 2019-06-20 19:27 | Emergency (ER) | payer MEDICARE ==
[~2019-06-20] VITALS: Ht 170.2 cm; Wt 99.8 kg
[~2019-06-20 19:27] MED LIST changes: -GLIP-116 PO; +GLIP10TA9 PO; +INSLISPI SC; -LOSA100T22 PO; -METF-372 PO; -PRE5T PO; +SACU1TAB PO
[2019-06-20 19:35] VITALS: BP 160/101
== END 2019-06-20 21:30 | disposition left against medical advice (07) ==
LOC: EDBD 19:27 → ER 19:29
DX: R07.9 Chest pain, unspecified (principal); R06.02 Shortness of breath; Z53.21 Procedure and treatment not carried out due to patient leaving prior to being seen by health care provider
CPT/HCPCS: 93005

== ENCOUNTER → 2019-07-02 | Outpatient (CLI) | payer BC, MEDICARE | END | disposition home or self-care (01) | LOC: Rad HDHVI 13:52 | PROVIDERS: ATTEND Internal Medicine Cardiovascular Disease | DX: I08.8 Other rheumatic multiple valve diseases (principal); I25.5 Ischemic cardiomyopathy; I11.0 Hypertensive heart disease with heart failure; I50.23 Acute on chronic systolic (congestive) heart failure | CPT/HCPCS: 93306 ==

== ENCOUNTER 2019-07-30 17:13 | Emergency (ER) | payer OTHER, MEDICAID ==
[~2019-07-30] VITALS: Ht 167.6 cm; Wt 99.8 kg
[2019-07-30 17:45] VITALS: BP 126/87
[2019-07-30 19:16] LABS: Basophils # (auto) 0.1 uL; Eosinophils # (auto) 0.1 uL; Eosinophils % (auto) 1.3 % (0.0-7.0); Hematocrit 41.1 % (41.0-53.0); Hemoglobin 13.8 g/dL (13.5-17.5); Lymphocytes % (auto) 24.5 % (10.0-50.0); Mean Corpuscular Hemoglobin 29.5 pg (28.0-32.0); Mean Corpuscular Hgb Conc. 33.5 g/dL (32.0-36.0); Mean Corpuscular Volume 88.1 fL (80.0-100.0); Monocytes # (auto) 0.9 uL; Monocytes % (auto) 11.1 % (0.0-12.0); Neutrophils # (auto) 5.1 uL; Neutrophils % (auto) 62.1 % (37.0-80.0); Platelet Count (auto) 244 10^3/uL (140-450); Red Blood Cells 4.66 10^6/uL (4.5-5.90); White Blood Cell 8.2 10^3/uL (4.4-10.8)
[2019-07-30 19:28] LABS: Albumin 3.8 g/dL (3.4-5.0); Anion Gap 9 (5-15); Blood Urea Nitrogen 24 mg/dL (7-18); Calcium 8.4 mg/dL (8.5-10.1); Carbon Dioxide 27 mmol/L (21-32); Chloride 97 mmol/L (98-107); Glucose 325 mg/dL (74-106); Sodium 133 mmol/L (136-145)
[2019-07-30 19:34] LABS: Alanine Aminotransferase 26 U/L (16-61); Alkaline Phosphatase 128 U/L (45-117); Aspartate Aminotransferase 17 U/L (15-37); BUN/Creatinine Ratio 15.5; Bilirubin, Total 0.2 mg/dL (0.2-1.0); GFR African American 58 mL/min; GFR Non-African American 48 mL/min; Total Protein 7.3 g/dL (6.4-8.2)
== END 2019-07-30 22:08 | disposition left against medical advice (07) ==
LOC: ER 17:13 → EDBD 17:13 → ER 22:08
DX: R07.89 Other chest pain (principal); Z53.21 Procedure and treatment not carried out due to patient leaving prior to being seen by health care provider
CPT/HCPCS: 36415; 71046; 80053; 84484; 85025

== ENCOUNTER → 2019-08-21 | Outpatient (CLI) | payer MEDICARE, MEDICAID ==
[~2019-08-21] VITALS: Ht 170.2 cm; Wt 104.3 kg
[~2019-08-21] MED LIST changes: +ADENOSINE 88 MG in GIVE UN-DILUTED 0 ML IV ONE; +ADENOSINE 90 MG/30 ML INJ IV ONE
[2019-08-21 11:53] LABS: Basophils # (auto) 0.1 uL; Basophils % (auto) 0.8 % (0.0-2.0); Eosinophils # (auto) 0.1 uL; Hemoglobin 14.8 g/dL (13.5-17.5); Lymphocytes # (auto) 1.7 uL; Lymphocytes % (auto) 20.7 % (10.0-50.0); Mean Corpuscular Hemoglobin 29.8 pg (28.0-32.0); Mean Corpuscular Hgb Conc. 33.7 g/dL (32.0-36.0); Mean Corpuscular Volume 88.5 fL (80.0-100.0); Monocytes # (auto) 0.7 uL; Monocytes % (auto) 8.2 % (0.0-12.0); Neutrophils # (auto) 5.6 uL; Neutrophils % (auto) 69.3 % (37.0-80.0); Platelet Count (auto) 279 10^3/uL (140-450); Red Blood Cells 4.97 10^6/uL (4.5-5.90); Red Cell Distribution Width 13.9 % (11.8-14.3)
[2019-08-21 12:01] LABS: Urine Blood Negative /uL (Negative); Urine Specific Gravity 1.015 (1.001-1.035)
[2019-08-21 12:02] LABS: Albumin 3.9 g/dL (3.4-5.0); Potassium 4.3 mmol/L (3.5-5.1)
[2019-08-21 12:09] LABS: BUN/Creatinine Ratio 12.9; Bilirubin, Total 0.3 mg/dL (0.2-1.0); Calcium 8.9 mg/dL (8.5-10.1); Total Protein 7.5 g/dL (6.4-8.2)
[2019-08-21 12:13] LABS: Free T4 (Free Thyroxine) 1.02 ng/dL (0.89-1.76); Prostate Specific Antigen 0.21 ng/mL (0.0-4.0)
== END | disposition home or self-care (01) ==
LOC: Rad HDHVI 08:56
PROVIDERS: ATTEND Internal Medicine Cardiovascular Disease
DX: E03.9 Hypothyroidism, unspecified (principal); K90.9 Intestinal malabsorption, unspecified; C61 Malignant neoplasm of prostate; N39.0 Urinary tract infection, site not specified; D51.9 Vitamin B12 deficiency anemia, unspecified; I11.0 Hypertensive heart disease with heart failure; I50.43 Acute on chronic combined systolic (congestive) and diastolic (congestive) heart failure; I42.0 Dilated cardiomyopathy; I25.5 Ischemic cardiomyopathy; I25.2 Old myocardial infarction; E78.00 Pure hypercholesterolemia, unspecified; R06.02 Shortness of breath; R07.89 Other chest pain; Z79.899 Other long term (current) drug therapy; Z95.0 Presence of cardiac pacemaker; Z95.1 Presence of aortocoronary bypass graft
CPT/HCPCS: 36415; 78452; 80053; 80061; 81003; 82306; 82607; 83036; 84153; 84403; 84439; 84443; 85025; 93005; 96374; 96375; A9500; J0153

== ENCOUNTER → 2019-08-25 | Outpatient (CLI) | payer MEDICARE, MEDICAID ==
[~2019-08-25] MED LIST changes: -ADENOSINE 88 MG in GIVE UN-DILUTED 0 ML IV ONE; -ADENOSINE 90 MG/30 ML INJ IV ONE
== END | disposition home or self-care (01) ==
LOC: Rad HDHVI 12:09
PROVIDERS: ATTEND Internal Medicine Cardiovascular Disease
DX: M16.11 Unilateral primary osteoarthritis, right hip (principal)
CPT/HCPCS: 73700

== ENCOUNTER → 2019-08-29 | Outpatient (CLI) | payer MEDICARE, MEDICAID ==
[~2019-08-29] MED LIST changes: +IOHEXOL 350 MG/ML 100ML IJ ONE; +SODIUM CHLORIDE 0.9% 250 ML IV ONE
[2019-08-29 09:08] VITALS: BP 154/84
--- NOTE | 2019-08-29 09:15 | NUR ---
IV insertion IV access obtained, via clean sterile technique by inserting 20 gauge catheter at LFA after 3 attempt(s). IV secured properly. No trauma to site. Patient tolerated procedure well.
--- NOTE | 2019-08-29 11:20 | NUR ---
IV removal IV DC'd with sterile technique, catheter fully intact. Pressure dressing applied to site. Patient tolerated procedure well.
[2019-08-29 11:23] VITALS: BP 135/84
--- NOTE | 2019-08-29 11:23 | NUR ---
[facility] Discharge Instructions See e-MAR for any mediations given with this visit. Patient education given on disease process. Patient verbalized understanding. Previous labs reviewed. Patient discharged in stable condition with after care instructions and follow up appointment. NOTE PATIENT EDUCATED TO DRINK PLENTY OF FLUIDS AFTER IV CONTRAST, PT VERBALIZED UNDERSTANDING. NS [id number] ADMIN BY DOMINGO STOREY
== END | disposition home or self-care (01) ==
LOC: Rad HDHVI 08:47
PROVIDERS: ATTEND Internal Medicine Cardiovascular Disease
DX: I71.4 Abdominal aortic aneurysm, without rupture (principal); I11.0 Hypertensive heart disease with heart failure; I50.42 Chronic combined systolic (congestive) and diastolic (congestive) heart failure; I25.2 Old myocardial infarction; R94.4 Abnormal results of kidney function studies; N28.89 Other specified disorders of kidney and ureter; R79.0 Abnormal level of blood mineral; K80.20 Calculus of gallbladder without cholecystitis without obstruction; K57.30 Diverticulosis of large intestine without perforation or abscess without bleeding; M16.11 Unilateral primary osteoarthritis, right hip; E03.9 Hypothyroidism, unspecified; E78.00 Pure hypercholesterolemia, unspecified; Z79.899 Other long term (current) drug therapy
CPT/HCPCS: 36415; 74178; 82565; G0463; J7050; Q9967; 96360

== ENCOUNTER 2022-01-01 21:42 | Emergency (ER) | payer OTHER, MEDICAID ==
[~2022-01-01] VITALS: Ht 170.2 cm; Wt 103.4 kg
[~2022-01-01 21:42] MED LIST changes: -IBUP800T24 PO; +IBUP800T26 PO; -IOHEXOL 350 MG/ML 100ML IJ ONE; -SODIUM CHLORIDE 0.9% 250 ML IV ONE; +SPIR25TA PO; -SPIR25TA88 PO
[2022-01-01 21:44] VITALS: BP 173/94
[2022-01-02] MEDS ORDERED: HYDR50CA PO (05:56)
[2022-01-04] MEDS ORDERED: MELA3TAB27 PO (05:54)
[2022-01-04] MEDS ORDERED: GABA300C10 PO (05:54)
[2022-01-04] MEDS ORDERED: ATOR20TA50 PO (06:03)
[2022-01-04] MEDS ORDERED: ACET120S38 PR (06:03)
[2022-01-04] MEDS ORDERED: TRAZ50TA2 PO (06:03)
[2022-01-04] MEDS ORDERED: INSU1INJ5 SC (06:04)
[2022-01-04] MEDS ORDERED: SERT50TA PO (06:04)
[2022-01-04] MEDS ORDERED: HYDR50CA PO (06:04)
[2022-01-04] MEDS ORDERED: POTA10TA51 PO (06:04)
== END 2022-01-01 22:17 | disposition left against medical advice (07) ==
LOC: ER 21:42
DX: R06.02 Shortness of breath (principal); I50.9 Heart failure, unspecified; Z53.21 Procedure and treatment not carried out due to patient leaving prior to being seen by health care provider
CPT/HCPCS: 71045

== ENCOUNTER 2022-01-02 01:40 | Emergency (ER) | payer OTHER, MEDICAID ==
[~2022-01-02] VITALS: Ht 170.2 cm; Wt 103.4 kg
[2022-01-02 02:32] LABS: Basophils # (auto) 0.1 10 ^3/uL (0-0.2); Basophils % (auto) 1.4 % (0.0-2.0); Eosinophils # (auto) 0.3 10 ^3/uL (0-0.8); Eosinophils % (auto) 3.4 % (0.0-7.0); Hematocrit 46.2 % (41.0-53.0); Hemoglobin 15.5 g/dL (13.5-17.5); Lymphocytes # (auto) 1.6 10 ^3/uL (0.4-5.4); Lymphocytes % (auto) 18.6 % (10.0-50.0); Mean Corpuscular Hemoglobin 29.8 pg (28.0-32.0); Mean Corpuscular Hgb Conc. 33.6 g/dL (32.0-36.0); Mean Corpuscular Volume 88.6 fL (80.0-100.0); Monocytes # (auto) 0.8 10 ^3/uL (0-1.3); Monocytes % (auto) 9.7 % (0.0-12.0); Neutrophils # (auto) 5.8 10 ^3/uL (1.6-8.6); Neutrophils % (auto) 66.9 % (37.0-80.0); Nucleated Red Blood Cells % 0.1 %; Red Blood Cells 5.21 10^6/uL (4.5-5.90); Red Cell Distribution Width 15.7 % (11.8-14.3); White Blood Cell 8.7 10^3/uL (4.4-10.8)
[2022-01-02 02:50] LABS: Albumin 3.4 g/dL (3.4-5.0); BUN/Creatinine Ratio 19.5; Calcium 8.4 mg/dL (8.5-10.1); Potassium 3.5 mmol/L (3.5-5.1)
[2022-01-02 02:52] LABS: Bilirubin, Total 0.5 mg/dL (0.2-1.0); Total Protein 6.3 g/dL (6.4-8.2)
[2022-01-02 05:30] VITALS: BP 155/85
[2022-01-02] MEDS ORDERED: HYDR50CA PO ×2 (05:56)
[2022-01-02 07:00] LABS: Urine Bacteria NONE SEEN /hpf (None Seen); Urine Blood TRACE /uL (Negative); Urine Budding Yeast OCCASIONAL /hpf (None Seen); Urine Mucus FEW (None Seen); Urine Specific Gravity 1.031 (1.001-1.035); Urine WBC 29 /hpf (0 - 3)
== END 2022-01-02 06:31 | disposition home or self-care (01) ==
LOC: EDUNIT# 01:40 → ER 01:40 → EDBD 01:40 → ER 06:31
DX: I11.0 Hypertensive heart disease with heart failure (principal); I50.9 Heart failure, unspecified; F41.9 Anxiety disorder, unspecified; G47.00 Insomnia, unspecified; I25.10 Atherosclerotic heart disease of native coronary artery without angina pectoris; I25.2 Old myocardial infarction; J44.9 Chronic obstructive pulmonary disease, unspecified; E11.9 Type 2 diabetes mellitus without complications; E78.5 Hyperlipidemia, unspecified; Z86.73 Personal history of transient ischemic attack (TIA), and cerebral infarction without residual deficits; Z95.1 Presence of aortocoronary bypass graft; Z95.0 Presence of cardiac pacemaker; Z79.82 Long term (current) use of aspirin; Z79.01 Long term (current) use of anticoagulants; Z79.1 Long term (current) use of non-steroidal anti-inflammatories (NSAID); Z79.899 Other long term (current) drug therapy
CPT/HCPCS: 36415; 71045; 80053; 81001; 83880; 84484; 85025; 93005

== ENCOUNTER 2022-01-03 21:53 | Inpatient (IN) | payer OTHER, MEDICAID ==
[~2022-01-03] VITALS: Ht 152.4 cm; Wt 102.9 kg
[~2022-01-03 21:53] MED LIST changes: +HYDR50CA PO
[2022-01-04] VITALS (9 sets, daily range): BP systolic 132–179; BP diastolic 77–96
[2022-01-04 00:04] LABS: Basophils # (auto) 0.1 10 ^3/uL (0-0.2); Basophils % (auto) 1.3 % (0.0-2.0); Eosinophils # (auto) 0.2 10 ^3/uL (0-0.8); Hematocrit 45.8 % (41.0-53.0); Lymphocytes # (auto) 1.4 10 ^3/uL (0.4-5.4); Lymphocytes % (auto) 16.8 % (10.0-50.0); Mean Corpuscular Hemoglobin 29.7 pg (28.0-32.0); Mean Corpuscular Hgb Conc. 32.8 g/dL (32.0-36.0); Mean Corpuscular Volume 90.7 fL (80.0-100.0); Monocytes # (auto) 1.1 10 ^3/uL (0-1.3); Monocytes % (auto) 13.6 % (0.0-12.0); Neutrophils # (auto) 5.3 10 ^3/uL (1.6-8.6); Neutrophils % (auto) 65.3 % (37.0-80.0); Nucleated Red Blood Cells % 0.1 %; Red Blood Cells 5.04 10^6/uL (4.5-5.90); White Blood Cell 8.1 10^3/uL (4.4-10.8)
[2022-01-04 00:32] LABS: Alanine Aminotransferase 49 U/L (16-61); Albumin 3.3 g/dL (3.4-5.0); Anion Gap 6 (5-15); Aspartate Aminotransferase 34 U/L (15-37); BUN/Creatinine Ratio 17.7; Blood Alcohol < 3.0 mg/dL (0-5); Blood Urea Nitrogen 25 mg/dL (7-18); Calcium 8.4 mg/dL (8.5-10.1); Carbon Dioxide 28 mmol/L (21-32); Chloride 101 mmol/L (98-107); GFR African American 64 mL/min; GFR Non-African American 53 mL/min; Glucose 192 mg/dL (74-106); Magnesium 2.6 mg/dL (1.6-2.6); Potassium 4.3 mmol/L (3.5-5.1); Sodium 135 mmol/L (136-145)
[2022-01-04 00:35] LABS: Alkaline Phosphatase 156 U/L (45-117); Bilirubin, Total 0.4 mg/dL (0.2-1.0); Total Protein 6.6 g/dL (6.4-8.2)
[2022-01-04] MEDS ORDERED: NALOXONE HCL 1MG/ML 2ML SYRINGE IV ONE ×3 (01:15→01:45)
[2022-01-04] MEDS ORDERED: FUROSEMIDE 100 MG/10ML VIAL IV ONE (01:30)
[2022-01-04] MEDS: FUROSEMIDE 40 MG/4 ML VIAL IV SCH ×2 (02:19→06:13)
[2022-01-04 03:16] LABS: Alcohol, Urine < 3.0 mg/dL (0-10); Amphetamine Screen, Urine NEGATIVE (NEGATIVE); Barbiturate Scree,Urine NEGATIVE (NEGATIVE); Benzodiazephine Screen, Urine NEGATIVE (NEGATIVE); Cannabinoid Screen, Urine NEGATIVE (NEGATIVE); Cocaine Screen, Urine NEGATIVE (NEGATIVE); Opiate Scree,Urine NEGATIVE (NEGATIVE); Phencyclidine Screen, Urine NEGATIVE (NEGATIVE)
[2022-01-04] MEDS: PANTOPRAZOLE 40 MG/10 ML VIAL INJ IV SCH ×2 (03:34→09:58)
[2022-01-04] MEDS ORDERED: GABA300C10 PO ×2 (05:54)
[2022-01-04] MEDS ORDERED: MELA3TAB27 PO ×2 (05:54)
[2022-01-04] MEDS ORDERED: PIPERACILLIN-TAZO 4.5GM 100 ML IV SCH (06:00)
[2022-01-04] MEDS ORDERED: ACET120S38 PR ×2 (06:03)
[2022-01-04] MEDS ORDERED: ATOR20TA50 PO ×2 (06:03)
[2022-01-04] MEDS ORDERED: TRAZ50TA2 PO ×2 (06:03)
[2022-01-04] MEDS ORDERED: POTA10TA51 PO ×2 (06:04)
[2022-01-04] MEDS ORDERED: HYDR50CA PO ×2 (06:04)
[2022-01-04] MEDS ORDERED: INSU1INJ5 SC ×2 (06:04)
[2022-01-04] MEDS ORDERED: SERT50TA PO ×2 (06:04)
[2022-01-04] MEDS ORDERED: DEXTROSE (50%) 50ML SYRG IV PRN (08:45)
[2022-01-04] MEDS: SACUBITRIL-VALSARTAN 24mg/26mg TAB PO SCH ×2 (10:00→21:35)
[2022-01-04] MEDS: PIPERACILLIN-TAZO 4.5GM 100 ML IV SCH ×2 (10:07→18:01)
[2022-01-04] MEDS ORDERED: hydrALAZINE HCL 20 MG/ML VL IV PRN (11:30)
[2022-01-04] MEDS ORDERED: ONDANSETRON HCL 4 MG/2 ML VIAL IV PRN (11:45)
[2022-01-04] MEDS ORDERED: MORPHINE SULFATE INJECTION 2 MG/ML SYRG IV PRN (11:45)
[2022-01-04] MEDS: ACCU-CHEK COMFORT CURVE STRIP VI SCH ×3 (11:49→23:59)
[2022-01-04] MEDS: InsuLIN REG 1unit/0.01ml Soln (100units/ml) SC SCH ×2 (11:49→18:04)
[2022-01-04] MEDS: ACETAMINOPHEN 325 MG TAB PO PRN ×2 (14:17→21:41)
[2022-01-04] MEDS: HYDROcodone-ACET 5/325MG TAB PO PRN (16:16)
[2022-01-04] MEDS: CARVEDILOL 3.125 MG TAB PO SCH (21:35)
[2022-01-05] MEDS: InsuLIN REG 1unit/0.01ml Soln (100units/ml) SC SCH ×4 (00:01→18:06)
[2022-01-05] MEDS: PIPERACILLIN-TAZO 4.5GM 100 ML IV SCH ×3 (01:21→18:02)
[2022-01-05] MEDS: ACCU-CHEK COMFORT CURVE STRIP VI SCH ×3 (05:06→18:02)
[2022-01-05] MEDS: ACETAMINOPHEN 325 MG TAB PO PRN ×2 (05:07→16:53)
[2022-01-05 05:16] VITALS: BP 139/70
[2022-01-05 09:00] VITALS: BP 123/77
[2022-01-05] MEDS: PANTOPRAZOLE 40 MG/10 ML VIAL INJ IV SCH (09:36)
[2022-01-05] MEDS: FUROSEMIDE 40 MG/4 ML VIAL IV SCH (09:36)
[2022-01-05] MEDS: SACUBITRIL-VALSARTAN 24mg/26mg TAB PO SCH ×2 (09:37→21:59)
[2022-01-05] MEDS: CARVEDILOL 3.125 MG TAB PO SCH ×2 (09:37→21:57)
[2022-01-05 10:40] LABS: Basophils # (auto) 0.1 10 ^3/uL (0-0.2); Basophils % (auto) 0.7 % (0.0-2.0); Eosinophils # (auto) 0.2 10 ^3/uL (0-0.8); Eosinophils % (auto) 1.5 % (0.0-7.0); Hematocrit 49.3 % (41.0-53.0); Hemoglobin 16.5 g/dL (13.5-17.5); Lymphocytes # (auto) 1.1 10 ^3/uL (0.4-5.4); Lymphocytes % (auto) 9.1 % (10.0-50.0); Mean Corpuscular Hemoglobin 30.3 pg (28.0-32.0); Mean Corpuscular Hgb Conc. 33.5 g/dL (32.0-36.0); Mean Corpuscular Volume 90.6 fL (80.0-100.0); Monocytes # (auto) 1.5 10 ^3/uL (0-1.3); Monocytes % (auto) 12.4 % (0.0-12.0); Neutrophils # (auto) 9.3 10 ^3/uL (1.6-8.6); Neutrophils % (auto) 76.3 % (37.0-80.0); Red Blood Cells 5.43 10^6/uL (4.5-5.90); Red Cell Distribution Width 15.9 % (11.8-14.3); White Blood Cell 12.2 10^3/uL (4.4-10.8)
[2022-01-05 11:09] LABS: Calcium 8.8 mg/dL (8.5-10.1); Magnesium 2.6 mg/dL (1.6-2.6); Potassium 3.7 mmol/L (3.5-5.1)
[2022-01-05 11:13] LABS: BUN/Creatinine Ratio 15.9
[2022-01-05 12:43] VITALS: BP 151/72
[2022-01-05] MEDS: HEPARIN SODIUM (PORCINE) 5000 UNITS/ML 1ML VIAL SC SCH ×3 (12:52→21:59)
[2022-01-05 17:16] VITALS: BP 144/80
[2022-01-05 22:00] VITALS: BP 149/85
[2022-01-05] MEDS: HYDROcodone-ACET 5/325MG TAB PO PRN (22:01)
[2022-01-06] MEDS: ACCU-CHEK COMFORT CURVE STRIP VI SCH ×3 (00:31→13:25)
[2022-01-06] MEDS: InsuLIN REG 1unit/0.01ml Soln (100units/ml) SC SCH ×3 (00:32→13:42)
[2022-01-06] MEDS: PIPERACILLIN-TAZO 4.5GM 100 ML IV SCH ×2 (01:50→09:55)
[2022-01-06 05:00] VITALS: BP 148/81
[2022-01-06] MEDS: HEPARIN SODIUM (PORCINE) 5000 UNITS/ML 1ML VIAL SC SCH ×2 (06:01→13:48)
[2022-01-06 08:00] VITALS: BP 136/72
[2022-01-06 08:04] LABS: Basophils # (auto) 0.1 10 ^3/uL (0-0.2); Basophils % (auto) 1.1 % (0.0-2.0); Eosinophils # (auto) 0.3 10 ^3/uL (0-0.8); Eosinophils % (auto) 3.4 % (0.0-7.0); Hematocrit 46.8 % (41.0-53.0); Hemoglobin 15.6 g/dL (13.5-17.5); Lymphocytes # (auto) 1.3 10 ^3/uL (0.4-5.4); Lymphocytes % (auto) 16.2 % (10.0-50.0); Mean Corpuscular Hemoglobin 29.9 pg (28.0-32.0); Mean Corpuscular Hgb Conc. 33.3 g/dL (32.0-36.0); Mean Corpuscular Volume 89.7 fL (80.0-100.0); Monocytes % (auto) 12.5 % (0.0-12.0); Neutrophils # (auto) 5.5 10 ^3/uL (1.6-8.6); Neutrophils % (auto) 66.8 % (37.0-80.0); Nucleated Red Blood Cells % 0.5 %; Red Blood Cells 5.22 10^6/uL (4.5-5.90); Red Cell Distribution Width 15.6 % (11.8-14.3); White Blood Cell 8.3 10^3/uL (4.4-10.8)
[2022-01-06 08:26] LABS: Calcium 8.6 mg/dL (8.5-10.1); Magnesium 2.6 mg/dL (1.6-2.6); Potassium 3.3 mmol/L (3.5-5.1)
[2022-01-06 08:28] LABS: BUN/Creatinine Ratio 16.3
[2022-01-06] MEDS: FUROSEMIDE 40 MG/4 ML VIAL IV SCH (09:55)
[2022-01-06] MEDS: SACUBITRIL-VALSARTAN 24mg/26mg TAB PO SCH (09:55)
[2022-01-06] MEDS: PANTOPRAZOLE 40 MG/10 ML VIAL INJ IV SCH (09:55)
[2022-01-06] MEDS: CARVEDILOL 3.125 MG TAB PO SCH (09:57)
[2022-01-06] MEDS: ACETAMINOPHEN 325 MG TAB PO PRN (10:00)
[2022-01-06 13:00] VITALS: BP 108/50
[2022-01-06 13:55] VITALS: BP 108/50
== END 2022-01-06 15:56 | disposition home health service (06) | DRG 291 ==
LOC: ER 21:53 → EDBD 21:53 → TELE 01-04 02:09 → DOU IN ICU 01-04 04:10 → TELE-WESTW 01-04 21:18
PROVIDERS: ADMIT Internal Medicine Cardiovascular Disease; ATTEND Internal Medicine Cardiovascular Disease
PROC: 5A09357 Assistance with Respiratory Ventilation, Less than 24 Consecutive Hours, Continuous Positive Airway Pressure (ICD-10-PCS; principal; 2022-01-04)
PROC: 5A09357 Assistance with Respiratory Ventilation, Less than 24 Consecutive Hours, Continuous Positive Airway Pressure (ICD-10-PCS; 2022-01-05)
DX: I11.0 Hypertensive heart disease with heart failure (principal); J96.21 Acute and chronic respiratory failure with hypoxia; I50.23 Acute on chronic systolic (congestive) heart failure; N17.9 Acute kidney failure, unspecified; E66.9 Obesity, unspecified; E88.09 Other disorders of plasma-protein metabolism, not elsewhere classified; G47.30 Sleep apnea, unspecified; I25.5 Ischemic cardiomyopathy; E11.40 Type 2 diabetes mellitus with diabetic neuropathy, unspecified; E11.21 Type 2 diabetes mellitus with diabetic nephropathy; F41.9 Anxiety disorder, unspecified; Z20.822 Contact with and (suspected) exposure to COVID-19; G47.33 Obstructive sleep apnea (adult) (pediatric); I25.10 Atherosclerotic heart disease of native coronary artery without angina pectoris; J44.9 Chronic obstructive pulmonary disease, unspecified; Z82.3 Family history of stroke; Z82.49 Family history of ischemic heart disease and other diseases of the circulatory system; Z83.3 Family history of diabetes mellitus; Z86.73 Personal history of transient ischemic attack (TIA), and cerebral infarction without residual deficits; Z91.19 Patient's noncompliance with other medical treatment and regimen; Z95.1 Presence of aortocoronary bypass graft; Z95.810 Presence of automatic (implantable) cardiac defibrillator; Z98.61 Coronary angioplasty status; Z79.4 Long term (current) use of insulin
CPT/HCPCS: 36415; 36600; 71045; 80048; 80053; 80307; 80320; 82805; 82962; 83735; 83880; 84443; 84484; 85025; 87040; 87081; 87086; 94660; 96374; 96375; 99291; C9113; G0378; J1815; J2543

== ENCOUNTER 2022-02-16 13:11 | Inpatient (IN) | payer OTHER, MEDICAID ==
[~2022-02-16] VITALS: Ht 172.7 cm; Wt 113.8 kg
[~2022-02-16 13:11] MED LIST changes: +ACET120S38 PR; -ATOR10TA52 PO; +ATOR20TA50 PO; +GABA300C10 PO; -IBUP800T26 PO; +INSU1INJ5 SC; +MELA3TAB27 PO; +POTA10TA51 PO; +SERT50TA PO; +TRAZ50TA2 PO
[2022-02-16] MEDS ORDERED: InsuLIN REG 1unit/0.01ml Soln (100units/ml) IV ONE ×2 (13:30→16:15)
[2022-02-16] MEDS ORDERED: FUROSEMIDE 40 MG/4 ML VIAL IV ONE (13:30)
[2022-02-16 13:55] LABS: Basophils # (auto) 0.1 10 ^3/uL (0-0.2); Basophils % (auto) 0.8 % (0.0-2.0); Eosinophils # (auto) 0.1 10 ^3/uL (0-0.8); Eosinophils % (auto) 0.9 % (0.0-7.0); Hematocrit 45.8 % (41.0-53.0); Hemoglobin 14.9 g/dL (13.5-17.5); Lymphocytes # (auto) 1.1 10 ^3/uL (0.4-5.4); Lymphocytes % (auto) 10.8 % (10.0-50.0); Mean Corpuscular Hemoglobin 29.6 pg (28.0-32.0); Mean Corpuscular Hgb Conc. 32.6 g/dL (32.0-36.0); Mean Corpuscular Volume 90.7 fL (80.0-100.0); Monocytes # (auto) 0.9 10 ^3/uL (0-1.3); Monocytes % (auto) 9.2 % (0.0-12.0); Neutrophils # (auto) 7.8 10 ^3/uL (1.6-8.6); Neutrophils % (auto) 78.3 % (37.0-80.0); Red Blood Cells 5.05 10^6/uL (4.5-5.90); Red Cell Distribution Width 15.6 % (11.8-14.3); White Blood Cell 9.9 10^3/uL (4.4-10.8)
[2022-02-16 14:18] LABS: Urine Bacteria NONE SEEN /hpf (None Seen); Urine Blood TRACE /uL (Negative); Urine Hyaline Cast FEW /lpf (0 - 2); Urine Specific Gravity 1.009 (1.001-1.035); Urine WBC <1 /hpf (0 - 3)
[2022-02-16 14:20] LABS: Albumin 3.5 g/dL (3.4-5.0); Calcium 8.6 mg/dL (8.5-10.1); Potassium 4.6 mmol/L (3.5-5.1)
[2022-02-16 14:23] LABS: Bilirubin, Total 0.4 mg/dL (0.2-1.0); Total Protein 6.7 g/dL (6.4-8.2)
[2022-02-16] MEDS ORDERED: ACETAMINOPHEN 325 MG TAB PO PRN (21:45)
[2022-02-16] MEDS ORDERED: DEXTROSE (50%) 50ML SYRG IV PRN (21:45)
[2022-02-16] MEDS ORDERED: DOCUSATE SOD 100 MG CAP PO PRN (21:45)
[2022-02-16] MEDS ORDERED: ONDANSETRON HCL 4 MG/2 ML VIAL IV PRN (21:45)
[2022-02-16] MEDS: SODIUM CHLOR 0.9% PF (SALINE LOCK) 10ML VIAL/SYR IV SCH (22:55)
[2022-02-16] MEDS: CARVEDILOL 3.125 MG TAB PO SCH (22:55)
[2022-02-16] MEDS: FAMOTIDINE (10MG/ML) 2ML VL IV SCH (22:56)
[2022-02-16] MEDS: HEPARIN SODIUM (PORCINE) 5000 UNITS/ML 1ML VIAL SC SCH (23:25)
[2022-02-16] MEDS ORDERED: MORPHINE SULFATE INJ 2 MG/ml SYRG IV PRN (23:45)
[2022-02-16] MEDS ORDERED: NITROGLYCERIN 0.4 MG SL TAB SL PRN (23:45)
[2022-02-17] VITALS (7 sets, daily range): BP systolic 109–175; BP diastolic 76–95
[2022-02-17] MEDS: ACCU-CHEK COMFORT CURVE STRIP VI SCH ×5 (04:00→20:00)
[2022-02-17] MEDS: InsuLIN REG 1unit/0.01ml Soln (100units/ml) SC SCH ×6 (04:00→20:00)
[2022-02-17] MEDS ORDERED: SERT50TA19 PO ×2 (04:59→05:17)
[2022-02-17] MEDS ORDERED: CHLO1TAB PO (05:17)
[2022-02-17] MEDS ORDERED: ASPI-543 PO (05:17)
[2022-02-17] MEDS ORDERED: NAPR500T31 PO (05:17)
[2022-02-17] MEDS ORDERED: POTA10TA51 PO (05:17)
[2022-02-17] MEDS ORDERED: ACET-1156 PO (05:17)
[2022-02-17] MEDS ORDERED: ASPITAB34 OR (05:17)
[2022-02-17] MEDS ORDERED: TRAZ-181 PO (05:17)
[2022-02-17] MEDS ORDERED: LEVEMIR SC (05:17)
[2022-02-17] MEDS ORDERED: ATOR20TA50 PO (05:17)
[2022-02-17] MEDS ORDERED: GABA300C10 PO (05:17)
[2022-02-17] MEDS ORDERED: FURO40TA4 PO (05:17)
[2022-02-17 05:36] LABS: Basophils # (auto) 0.1 10 ^3/uL (0-0.2); Basophils % (auto) 0.7 % (0.0-2.0); Eosinophils # (auto) 0.2 10 ^3/uL (0-0.8); Eosinophils % (auto) 1.2 % (0.0-7.0); Hematocrit 44.3 % (41.0-53.0); Hemoglobin 14.7 g/dL (13.5-17.5); Lymphocytes # (auto) 1.3 10 ^3/uL (0.4-5.4); Lymphocytes % (auto) 9.5 % (10.0-50.0); Mean Corpuscular Hemoglobin 29.7 pg (28.0-32.0); Mean Corpuscular Hgb Conc. 33.1 g/dL (32.0-36.0); Mean Corpuscular Volume 89.8 fL (80.0-100.0); Monocytes # (auto) 1.4 10 ^3/uL (0-1.3); Monocytes % (auto) 10.4 % (0.0-12.0); Neutrophils # (auto) 10.3 10 ^3/uL (1.6-8.6); Neutrophils % (auto) 78.2 % (37.0-80.0); Red Blood Cells 4.94 10^6/uL (4.5-5.90); Red Cell Distribution Width 15.2 % (11.8-14.3); White Blood Cell 13.2 10^3/uL (4.4-10.8)
[2022-02-17 05:54] LABS: Albumin 3.2 g/dL (3.4-5.0); Calcium 8.4 mg/dL (8.5-10.1); Potassium 4.7 mmol/L (3.5-5.1)
[2022-02-17 05:58] LABS: BUN/Creatinine Ratio 20.9; Bilirubin, Total 0.4 mg/dL (0.2-1.0); Total Protein 6.3 g/dL (6.4-8.2)
[2022-02-17] MEDS: SODIUM CHLOR 0.9% PF (SALINE LOCK) 10ML VIAL/SYR IV SCH ×3 (06:26→21:29)
[2022-02-17] MEDS: HYDROcodone-ACET 5/325MG TAB PO PRN (07:14)
[2022-02-17] MEDS ORDERED: hydrALAZINE HCL 20 MG/ML VL IV PRN (08:30)
[2022-02-17] MEDS ORDERED: FUROSEMIDE 40 MG/4 ML VIAL IV SCH (10:00)
[2022-02-17] MEDS: CARVEDILOL 3.125 MG TAB PO SCH ×2 (10:00→21:19)
[2022-02-17] MEDS: FAMOTIDINE (10MG/ML) 2ML VL IV SCH ×2 (10:00→22:00)
[2022-02-17] MEDS: ASPirin 81 mg TAB PO SCH (10:53)
[2022-02-17] MEDS: HEPARIN SODIUM (PORCINE) 5000 UNITS/ML 1ML VIAL SC SCH ×2 (10:58→21:36)
[2022-02-17] MEDS: FUROSEMIDE 40 MG/4 ML VIAL IV SCH ×2 (13:45→21:31)
[2022-02-17] MEDS: DOXYCYCLINE 100MG/250ML 250 ML IV SCH (21:01)
[2022-02-18] MEDS: HYDROcodone-ACET 5/325MG TAB PO PRN (03:39)
[2022-02-18] MEDS: ACCU-CHEK COMFORT CURVE STRIP VI SCH ×5 (04:00→16:00)
[2022-02-18] MEDS: InsuLIN REG 1unit/0.01ml Soln (100units/ml) SC SCH ×5 (04:00→16:00)
[2022-02-18 04:38] VITALS: BP 137/62
[2022-02-18] MEDS: SODIUM CHLOR 0.9% PF (SALINE LOCK) 10ML VIAL/SYR IV SCH ×2 (05:47→14:00)
[2022-02-18] MEDS: DOXYCYCLINE 100MG/250ML 250 ML IV SCH (07:30)
[2022-02-18 09:00] VITALS: BP 137/80
[2022-02-18] MEDS: FAMOTIDINE (10MG/ML) 2ML VL IV SCH (10:00)
[2022-02-18] MEDS: FUROSEMIDE 40 MG/4 ML VIAL IV SCH (10:00)
[2022-02-18] MEDS: HEPARIN SODIUM (PORCINE) 5000 UNITS/ML 1ML VIAL SC SCH (10:00)
[2022-02-18] MEDS: CARVEDILOL 3.125 MG TAB PO SCH (10:00)
[2022-02-18] MEDS: ASPirin 81 mg TAB PO SCH (10:00)
[2022-02-18 13:00] VITALS: BP 134/79
[2022-02-18 13:19] LABS: Basophils # (auto) 0.4 10 ^3/uL (0-0.2); Basophils % (auto) 2.8 % (0.0-2.0); Eosinophils # (auto) 0.1 10 ^3/uL (0-0.8); Eosinophils % (auto) 0.8 % (0.0-7.0); Hematocrit 45.1 % (41.0-53.0); Hemoglobin 14.7 g/dL (13.5-17.5); Lymphocytes # (auto) 0.7 10 ^3/uL (0.4-5.4); Lymphocytes % (auto) 5.7 % (10.0-50.0); Mean Corpuscular Hemoglobin 29.3 pg (28.0-32.0); Mean Corpuscular Hgb Conc. 32.6 g/dL (32.0-36.0); Mean Corpuscular Volume 89.8 fL (80.0-100.0); Monocytes # (auto) 1.2 10 ^3/uL (0-1.3); Monocytes % (auto) 9.1 % (0.0-12.0); Neutrophils # (auto) 10.6 10 ^3/uL (1.6-8.6); Neutrophils % (auto) 81.6 % (37.0-80.0); Nucleated Red Blood Cells % 0.1 %; Red Blood Cells 5.03 10^6/uL (4.5-5.90)
[2022-02-18 13:32] LABS: BUN/Creatinine Ratio 21.1; Calcium 8.2 mg/dL (8.5-10.1); Potassium 3.7 mmol/L (3.5-5.1)
[2022-02-18] MEDS ORDERED: FURO40TA4 PO (14:50)
[2022-02-18] MEDS ORDERED: CARV3.1240 PO (14:50)
[2022-02-18 17:02] VITALS: BP 137/60
== END 2022-02-18 18:00 | disposition home health service (06) | DRG 291 ==
LOC: EDBD 13:11 → ER 13:11 → TELE 23:41 → TELE-WESTW 23:59
PROVIDERS: ADMIT Nurse Practitioner Family; ATTEND Internal Medicine
DX: I13.0 Hypertensive heart and chronic kidney disease with heart failure and stage 1 through stage 4 chronic kidney disease, or unspecified chronic kidney disease (principal); I50.43 Acute on chronic combined systolic (congestive) and diastolic (congestive) heart failure; J18.9 Pneumonia, unspecified organism; J96.21 Acute and chronic respiratory failure with hypoxia; D84.9 Immunodeficiency, unspecified; E11.65 Type 2 diabetes mellitus with hyperglycemia; E11.40 Type 2 diabetes mellitus with diabetic neuropathy, unspecified; E78.5 Hyperlipidemia, unspecified; E66.01 Morbid (severe) obesity due to excess calories; F32.A Depression, unspecified; F41.9 Anxiety disorder, unspecified; I25.10 Atherosclerotic heart disease of native coronary artery without angina pectoris; I25.5 Ischemic cardiomyopathy; Z20.822 Contact with and (suspected) exposure to COVID-19; N18.9 Chronic kidney disease, unspecified; E11.22 Type 2 diabetes mellitus with diabetic chronic kidney disease; Z82.49 Family history of ischemic heart disease and other diseases of the circulatory system; Z83.3 Family history of diabetes mellitus; Z86.73 Personal history of transient ischemic attack (TIA), and cerebral infarction without residual deficits; I25.2 Old myocardial infarction; Z91.19 Patient's noncompliance with other medical treatment and regimen; Z82.3 Family history of stroke; Z95.1 Presence of aortocoronary bypass graft; Z95.810 Presence of automatic (implantable) cardiac defibrillator; Z68.38 Body mass index [BMI] 38.0-38.9, adult; Z79.4 Long term (current) use of insulin
CPT/HCPCS: 36415; 51702; 71045; 74176; 78582; 80048; 80053; 81001; 82962; 83880; 84484; 85025; 85379; 87040; 87081; 93005; 93306; 96374; 96375; 96376; 99291; G0378; J1815; J3490